=== PATIENT | male | born 1965 | race Caucasian/White ===

== ENCOUNTER 2019-01-18 13:47 | Inpatient (IN) | payer OTHER, BC ==
[2019-01-18] MEDS ORDERED: SODIUM CHLORIDE 0.9% 1000 ML INFUS.BAG IV ONE (14:55)
[2019-01-18] MEDS ORDERED: ONDANSETRON 4 MG/2 ML VIAL IVPUSH ONE (14:55)
[2019-01-18 15:00] VITALS: BMI 25.0
[2019-01-18 15:42] LABS: ALBUMIN 3.9 g/dl (3.4-5.0); BILIRUBIN,TOTAL 0.4 mg/dL (0.2-1); BLOOD UREA NITROGEN 13.5 mg/dL (7-18); CALCIUM 9.2 mg/dL (8.5-10.1); CREATININE 0.9 mg/dL (0.55-1.3); POTASSIUM 4.4 mmol/L (3.5-5.1); TOT PROT 7.2 g/dl (6.4-8.2)
[2019-01-18] MEDS ORDERED: MIDAZOLAM HCL 5 MG/1 ML Single Dose Vial IVPUSH ONE (15:53)
[2019-01-18] MEDS ORDERED: MIDAZOLAM HCL 2 MG/2 ML SINGLE DOSE VIAL ONE ×2 (15:54→17:34)
[2019-01-18] MEDS ORDERED: MIDAZOLAM HCL 2 MG/2 ML SINGLE DOSE VIAL IVPUSH ONE ×3 (16:01→19:34)
--- NOTE | 2019-01-18 16:05 | PDOC ---
Documentation entered by Earlene Hannah SCRIBE, acting as scribe for Edu Gustafson MD. Edu Gustafson MD: This documentation has been prepared by the Brielle hollingsworth Xhesika, SCRIBE, under my direction and personally reviewed by me in its entirety. I confirm that the documentation accurately reflects all work, treatment, procedures, and medical decision making performed by me. History of Present Illness - General Chief Complaint: Seizure Stated Complaint: Seizure Time Seen by Provider: 01/18/19 14:48 History Source: Family Exam Limitations: No Limitations - History of Present Illness Initial Comments: The patient is a 53 year old male with a significant past medical history of previous stroke (2016), type 2 DM, and subsequent seizures who presents to the ED via EMS s/p 2 seizures. As per at bedside, the patient had 1 unwitnessed postictal seizure at 10:30am, the patient stood up by the help of his family, went to the bathroom, came back to his bed, had 1 episode of vomiting and at 1pm he had a 2nd witness (by ) postictal seizure. Family notes his second seizure lasted for 1 minutes and the patient was unresponsive. Family notes the patient has had 3 seizures since July 2018. History is limited due to patients postictal seizure. Allergies: penicillins PCP: Milton Sawyer Past History - Past Medical History Allergies/Adverse Reactions: Allergies Allergy/AdvReac Type Severity Reaction Status Date / Time Penicillins Allergy Verified 01/18/19 14:33 Home Medications: Ambulatory Orders NK [No Known Home Medication] 08/09/15 COPD: No - Suicide/Smoking/Psychosocial Hx Smoking History: Never smoked Have you smoked in the past 12 months: No Number of Cigarettes Smoked Daily: 40 Information on smoking cessation initiated: No 'Breaking Loose' booklet given: 08/09/15 Hx Alcohol Use: No Drug/Substance Use Hx: No Substance Use Type: None Review of Systems - Review of Systems Able to Perform ROS?: No Comments:: 01/18/19 15:10 Limited due to patients postictal seizure. *Physical Exam - Vital Signs Last Vital Signs Temp Pulse Resp BP Pulse Ox 97.4 F L 95 H 18 122/80 94 L 01/18/19 13:47 01/18/19 13:47 01/18/19 13:47 01/18/19 13:47 01/18/19 13:47 - Physical Exam Comments: 01/18/19 16:40 Vitals: Triage Vital signs reviewed General Appearance: Post Ictal well nourished well developed, Head: Atraumatic, Neck: Supple;No Nucal rigidity Chest Wall: Nontender Cardiac: Regular rate and rhythym, no murmurs, no rubs, no gallops, Lungs: Clear to auscultation bilateral, good air movement bilaterally, Abdomen: Soft, non distended, normal bowel sounds, non tender to palpation Extremities: Full range of motion to all extremities, no cyanosis, clubbing, or edema Skin: Warm and dry, no rashes or lesions, no rash, no petechiae Neuro: Strength intact to all extremities, Sensation intact to all extremities, Psych: normal mood, normal affect ED Treatment Course - LABORATORY CBC & Chemistry Diagram: 01/18/19 15:00 Medical Decision Making - Medical Decision Making 01/18/19 16:42 The patient is a 53 year old male with a significant past medical history of previous stroke (2016), type 2 DM, and subsequent seizures who presents to the ED via EMS s/p 2 seizures. As per at bedside, the patient had 1 unwitnessed postictal seizure at 10:30am, the patient stood up by the help of his family, went to the bathroom, came back to his bed, had 1 episode of vomiting and at 1pm he had a 2nd witness (by ) postictal seizure. Family notes his second seizure lasted for 1 minutes and the patient was unresponsive. Family notes the patient has had 3 seizures since July 2018. History is limited due to patients postictal seizure. Patient is status post 2 seizures today presented to the emergency department postictal with 2 episodes of vomiting A head CT was ordered but secondary to the patient's postictal status he was unable to tolerate a head CT. 3 mg IV Versed given for sedation in order to safely obtain patient's head CT Case discussed with patient's neurologist Dr. Mills. We'll load the patient with Keppra 1 g we'll observe the patient in the emergency department for the next few hours if patient returns to his baseline mental status over the next 1- 2 hours patient can be discharged with an increase in his Trileptal to 900 mg twice a day. If the patient remains postictal he will require admission overnight. Dr. Coates to reasses patient and dispo. *DC/Admit/Observation/Transfer Diagnosis at time of Disposition: Seizure - Referrals Referrals: Milton Zapien MD [Primary Care Provider] - - Patient Instructions - Post Discharge Activity
[2019-01-18] MEDS ORDERED: ONDANSETRON 4 MG/2 ML VIAL ONE (16:24)
[2019-01-18] MEDS ORDERED: levETIRAcetam 500 MG/5 ML INJECTION VIAL IVPB ONE ×3 (16:25→21:56)
[2019-01-18 16:45] LABS: BASO % 0.3 % (0-2.0); HEMATOCRIT 43.7 % (35.4-49); HEMOGLOBIN 14.8 GM/dL (11.7-16.9); LYMPH % 4.4 % (8-40); MCH 29.7 pg (25.7-33.7); MCHC 33.9 g/dl (32.0-35.9); MEAN CELL VOLUME 87.6 fl (80-96); MEAN PLT VOLUME 6.8 fl (7.5-11.1); MONO % 2.8 % (3.8-10.2); NEUT % 92.5 % (42.8-82.8); PLATELET COUNT 312 K/MM3 (134-434); RBC 4.98 M/mm3 (4.00-5.60); WHITE BLOOD COUNT 19.4 K/mm3 (4.0-10.0)
--- NOTE | 2019-01-18 18:12 | PDOC ---
*Physical Exam - Vital Signs Last Vital Signs Temp Pulse Resp BP Pulse Ox 97.4 F L 95 H 18 122/80 94 L 01/18/19 13:47 01/18/19 13:47 01/18/19 13:47 01/18/19 13:47 01/18/19 13:47 ED Treatment Course - LABORATORY CBC & Chemistry Diagram: 01/19/19 06:15 01/19/19 06:15 - ADDITIONAL ORDERS Additional order review: Laboratory Results 01/18/19 15:00 Sodium 140 Potassium 4.4 Chloride 108 H Carbon Dioxide 27 Anion Gap 5 L BUN 13.5 Creatinine 0.9 Est GFR (CKD-EPI)AfAm 111.05 Est GFR (CKD-EPI)NonAf 95.81 Random Glucose 92 Calcium 9.2 Total Bilirubin 0.4 AST 11 L ALT 21 Alkaline Phosphatase 81 Total Protein 7.2 Albumin 3.9 01/18/19 16:30 RBC 4.98 MCV 87.6 MCHC 33.9 RDW 14.0 MPV 6.8 L Neutrophils % 92.5 H Lymphocytes % 4.4 L Monocytes % 2.8 L Eosinophils % 0.0 Basophils % 0.3 - Medications Given in the ED: ED Medications Discontinued Medications Generic Name Dose Route Start Last Admin Trade Name Freq PRN Reason Stop Dose Admin Levetiracetam 1,000 mg 01/18/19 16:25 01/18/19 16:44 Keppra Injection - IVPB 01/18/19 16:26 1,000 mg ONCE ONE Administration Midazolam HCl 5 mg 01/18/19 15:53 01/18/19 16:35 Versed - IVPUSH 01/18/19 15:54 Not Given ONCE ONE Midazolam HCl 6 mg 01/18/19 16:01 01/18/19 16:21 Versed - IVPUSH 01/18/19 16:02 6 mg ONCE ONE Administration Midazolam HCl 2 mg 01/18/19 17:33 01/18/19 17:37 Versed - IVPUSH 01/18/19 17:34 2 mg ONCE ONE Administration Ondansetron HCl 4 mg 01/18/19 14:55 01/18/19 16:34 Zofran Injection IVPUSH 01/18/19 14:56 4 mg ONCE ONE Administration Sodium Chloride 1,000 ml 01/18/19 14:55 01/18/19 16:34 Normal Saline - IV 01/18/19 14:56 1,000 ml ONCE ONE Administration Medical Decision Making - Medical Decision Making 01/18/19 18:[address] Gustafson at 1730 Pt with hx seizure d/o presents to ED with seizures Thus far labs, CTH negative for acute pathology Pt required versed 3mg 2/[address] On my evaluation, pt waking up, agitated, had urine incontinence Required 4 staff to restrain pt, was given versed 3mg once more Rectally afebrile Case discussed with his neurologist Dr. Mills, plan to admit pt at this time States pt often has seizures 2/2 stroke, and this is similar to his past seizures also states pt has been this agititated after seizures in the past for up to 24 hours Discussed possible lumbar tap with Dr. Mills given agitation/ams but he does not recommend as these seizures and his post ictal agitation are similar to previous seizures Hospitalist has been microblogged to admit 01/18/19 18:[address] Roxanne Lawson, pt accepted for admission under Dr. Hearn Case discussed in detail with admitting physician including history, physical exam and ancillary studies. Admitting physician has assumed care for the patient, will follow all pending diagnostics and will complete the evaluation and treatment. 01/18/19 19:33 Pt agitated and refusing CXR, swung at XR tech, continuously trying to get out of bed and not redirectable Required another dose of versed and 4 point restraints CXR obtained Pt to be transported up to his bed *DC/Admit/Observation/Transfer Diagnosis at time of Disposition: Seizure - Discharge Dispostion Condition at time of disposition: Improved Decision to Admit order Date/Time: Decision to Admit Order Category Date Time Status Decision to Admit to Hospital Routine Admission 01/18/19 17:57 Active - Referrals - Patient Instructions - Post Discharge Activity
[2019-01-18 18:56] LABS: PLATELET ESTIMATE ADEQUATE
--- NOTE | 2019-01-18 19:41 | HP ---
<Che Dick - Last Filed: 01/19/19 06:06> CHIEF COMPLAINT: Seizures PCP: Milton Sawyer Neurology: Dr. Mills HISTORY OF PRESENT ILLNESS: Patient is a 53 year old male with PMH of stroke 2016, seizures, NIDDMT2, and HLD who was BIBEMS s/p 2 seizures. Pt is postictal and poor historian. at bedside able to assist in history. Pt had 1 unwitnessed postictal seizure this morning at 10:30am. He was able to stand and ambulate after the seizure but had 1 episode of nbnb vomiting. Around 1pm, pt had a 2nd witnessed (by ) postictal seizure that last 1 min and pt was unresponsive. Pt urinated himself but no bowel incontinence, did not bite his tongue, or hit his head. After the seizure, pt was agitated, unable to form full sentences or respond to questions in a legible manner. Pt has had 3 seizures since July 2018 (1x Jul, 1x September , 1x October). He sees Dr. Mills for his seizures and was initially placed on Keppra 750mg BID. Pt was poorly compliant with the Keppra (because of unwanted side effects) and seized once on this medication in October. Several weeks ago, Dr. Mills weaned pt off of Keppra and switched him to Trileptal BID. Per , pt has been compliant with this new medications since. He has had no recent illnesses or sick contacts. At baseline, he is A&Ox3 with moderate residual focal motor deficits on his left side (s/p stroke). ER course was notable for: (1) Given 1g IV Keppra, 8mg IV midazolam total (2) CT head: no acute intracranial pathology (3) Spoke with Dr. Mills: will admit pt for observation given postictal state wo improvement Recent Travel: denies PAST MEDICAL HISTORY: Stroke 2016, post-stroke seizures NIDDMT2 HLD PAST SURGICAL HISTORY: Thumb surgery Social History: Smokin-2 pack/day for many years, recently reduced to 1-2 cigarettes/day Alcohol: denies Drugs: denies Family History: Mother: HTN, DM Father: Lung CA Allergies Penicillins Allergy (Verified 01/18/19 14:33) -- anaphylaxis HOME MEDICATIONS: Home Medications Medication Instructions Recorded NK [No Known Home Medication] 08/09/15 REVIEW OF SYSTEMS CONSTITUTIONAL: Absent: fever, chills, diaphoresis, generalized weakness, malaise, loss of appetite, weight change HEENT: Absent: rhinorrhea, nasal congestion, throat pain, throat swelling, difficulty swallowing, mouth swelling, ear pain, eye pain, visual changes CARDIOVASCULAR: Absent: chest pain, syncope, palpitations, irregular heart rate, lightheadedness , peripheral edema RESPIRATORY: Absent: cough, shortness of breath, dyspnea with exertion, orthopnea, wheezing, stridor, hemoptysis GASTROINTESTINAL: Absent: abdominal pain, abdominal distension, nausea, vomiting, diarrhea, constipation, melena, hematochezia GENITOURINARY: Absent: dysuria, frequency, urgency, hesitancy, hematuria, flank pain, genital pain MUSCULOSKELETAL: Absent: myalgia, arthralgia, joint swelling, back pain, neck pain SKIN: Absent: rash, itching, pallor HEMATOLOGIC/IMMUNOLOGIC: Absent: easy bleeding, easy bruising, lymphadenopathy, frequent infections ENDOCRINE: Absent: unexplained weight gain, unexplained weight loss, heat intolerance, cold intolerance NEUROLOGIC: mental status changes, seizure, bladder incontinence Absent: headache, focal weakness or paresthesias, dizziness, unsteady gait PSYCHIATRIC: Absent: anxiety, depression, suicidal or homicidal ideation, hallucinations. PHYSICAL EXAMINATION Vital Signs - 24 hr 01/18/19 13:47 Temperature 97.4 F L Pulse Rate 95 H Respiratory 18 Rate Blood Pressure 122/80 O2 Sat by Pulse 94 L Oximetry (%) GENERAL: A&O x0, very agitated and unable to sit still. HEAD: Normal with no signs of trauma. EYES: Pupils equal, round and reactive to light, extraocular movements intact, sclera anicteric, conjunctiva clear. No lid lag. EARS, NOSE, THROAT: Ears normal, nares patent, oropharynx clear without exudates. Moist mucous membranes. NECK: Normal range of motion, supple without lymphadenopathy, JVD, or masses. LUNGS: Breath sounds equal, clear to auscultation bilaterally. No wheezes, and no crackles. No accessory muscle use. HEART: Regular rate and rhythm, normal S1 and S2 without murmur, rub or gallop. ABDOMEN: Soft, nontender, not distended, normoactive bowel sounds, no guarding, no rebound, no masses. No hepatomegaly or splenomegaly. MUSCULOSKELETAL: Normal range of motion at all joints. No bony deformities or tenderness. No CVA tenderness. UPPER EXTREMITIES: 2+ pulses, warm, well-perfused. No cyanosis. No clubbing. No peripheral edema. LOWER EXTREMITIES: 2+ pulses, warm, well-perfused. No calf tenderness. No peripheral edema. NEUROLOGICAL: Strength intact 5/5 in all extremities. Gait not observed. Pt is very agitated and not cooperative for full neuro exam. Per pt's , he has decresaed sensation and fine motor movement on the Left. SKIN: Warm, dry, normal turgor, no rashes or lesions noted, normal capillary refill. Laboratory Results - last 24 hr CBC, BMP 01/18/19 16:30 01/18/19 15:00 Hepatic Panel Total Bilirubin 0.4 mg/dL (0.2-1) AST 11 U/L (15-37) L ALT 21 U/L (13-61) Alkaline Phosphatase 81 U/L (45-117) Albumin 3.9 g/dl (3.4-5.0) ASSESSMENT/PLAN: Patient is a 53 year old male with PMH of stroke 2016, seizures, NIDDMT2, and HLD who was BIBEMS s/p 2 seizures. #Postictal seizure Pt given 1gm IV Keppra and 8mg IV midazolam in ED, remains very agitated and A&O x0 Cont with Trileptal 900mg BID F/u CPK, lactic acid Frequent neuro monitoring Neurology consulted (Dr. Mills) on board, will see pt in am Close observation overnight due to prolonged postictal state. Pt's neuro status was not improving since admission, so f/u COTY, B12, TSH, Rheumatoid factor, ESR, CRP, RPR #Hx of stroke 2016 CT head: large encephalomalacia seen in R occipital lobe, posterior aspect of R frontal lobe and in R parietal lobe with exvacuodilatation of R lateral ventricle, posteriorly. Unchanged from prior. No acute intracranial pathology Carotid US (10/18/18): right internal carotid occluded; moderate plaques at left carotid Currently holding home meds: asa 81mg daily and crestor 5mg daily as pt cannot currently tolerate po F/u new MRI brain and carotid US to evaluate for any changes from prior imaging #NIDDMT2 Pt on metformin 500mg BID at home Starting on SSI TIDAC while admitted in hospital Frequent BGM #FEN IV NS @ 42ml/hr Replete lytes as needed NPO for now due to mental state and seizure risk #DVT ppx Heparin SQ TID #Dispo Monitor on med-surg Visit type - Emergency Visit Emergency Visit: Yes ED Registration Date: 01/18/19 Care time: The patient presented to the Emergency Department on the above date and was hospitalized for further evaluation of their emergent condition. - New Patient This patient is new to me today: Yes Date on this admission: 01/19/19 - Critical Care Critical Care patient: No ATTENDING PHYSICIAN STATEMENT I saw and evaluated the patient. I reviewed the resident's note and discussed the case with the resident. I agree with the resident's findings and plan as documented. SUBJECTIVE: OBJECTIVE: ASSESSMENT AND PLAN: <Shukri Hearn - Last Filed: 03/09/19 12:48> Seen and examined; agree with above aside from as supplemented my myself. All vital exam findings and patton historical details personally verified All diagnostics personally reviewed unless noted. Family history confirmed; negative for sudden cardiac . Social history, PMH, PSH, reviewed in depth and are as per chart. ATTENDING PHYSICIAN STATEMENT I saw and evaluated the patient. I reviewed the resident's note and discussed the case with the resident. I agree with the resident's findings and plan as documented. SUBJECTIVE: OBJECTIVE: ASSESSMENT AND PLAN:
[2019-01-18] MEDS ORDERED: SODIUM CHLORIDE 1,000 ML IV SCH (22:00)
--- NOTE | 2019-01-18 23:30 | PN ---
Teaching Attending Note Name of Resident: Che Dick ATTENDING PHYSICIAN STATEMENT I saw and evaluated the patient. I reviewed the resident's note and discussed the case with the resident. I agree with the resident's findings and plan as documented. Seen and examined; please see resident note for further historical information. Briefly, this is a 53 y/o male presenting for r/o CVA. He has multiple risk factors. Verified all patton portions of NIHSS, 10 sys ROS done and negative aside from HPI PMH, PSH, FH, SH reviewed FH asked and determined noncontributory after extensive review. VS, labs, imaging reviewed NAD, AAO, resting in bed Agree with NIHSS exam, neuro exam as documented RRR s1/2 NT ND +BS Pending further diagnostics per orders Admit to telemetry Montior neuro checks, seizure precautions. ASA, Statin Defer further care to neuro regarding diagnostics regarding stroke Agree with resident note discussion; please refer to aforementioned and orders for full information.
[2019-01-18] MEDS ORDERED: HALOPERIDOL LACTATE 5 MG/ML IM ONE ×2 (23:34)
[2019-01-18] MEDS: OXcarbazepine 300 MG/5 ML 250 ML BULK BOTTLE PO SCH (23:36)
[2019-01-18] MEDS: SODIUM CHLORIDE 1,000 ML IV SCH (23:39)
[2019-01-19] MEDS ORDERED: HALOPERIDOL LACTATE 5 MG/ML IM ONE (03:37)
[2019-01-19] MEDS: HEPARIN NA (PORCINE) 5,000 UNITS/ML 1ML VIAL SQ SCH ×3 (05:54→23:04)
[2019-01-19] MEDS: INSULIN SLIDING SCALE (NOVOLOG) 1 VIAL SQ SCH ×3 (06:01→17:13)
[2019-01-19 07:18] LABS: HEMATOCRIT 40.2 % (35.4-49); HEMOGLOBIN 13.8 GM/dL (11.7-16.9); MCH 29.9 pg (25.7-33.7); MCHC 34.4 g/dl (32.0-35.9); MEAN CELL VOLUME 86.8 fl (80-96); PLATELET COUNT 274 K/MM3 (134-434); RBC 4.62 M/mm3 (4.00-5.60); RDW 13.9 % (11.9-15.9); WHITE BLOOD COUNT 13.6 K/mm3 (4.0-10.0)
[2019-01-19 08:09] LABS: ALBUMIN 3.7 g/dl (3.4-5.0); ALK PHOS 54 U/L (45-117); ANION GAP 8 MMOL/L (8-16); BILIRUBIN,TOTAL 0.5 mg/dL (0.2-1); BLOOD UREA NITROGEN 8.1 mg/dL (7-18); CHLORIDE 104 mmol/L (98-107); CO2 24 mmol/L (21-32); CREATININE 0.6 mg/dL (0.55-1.3); GLUCOSE,RANDOM 128 mg/dL (74-106); POTASSIUM 3.7 mmol/L (3.5-5.1); SGOT/AST 32 U/L (15-37); SGPT/ALT 21 U/L (13-61); SODIUM 137 mmol/L (136-145); TOT PROT 6.2 g/dl (6.4-8.2)
[2019-01-19] MEDS ORDERED: PT OWN MED DRAWER 7, Y5N ONE (09:16)
[2019-01-19] MEDS ORDERED: ASPIRIN 81 MG CHEWABLE TABLETS PO SCH (10:00)
[2019-01-19] MEDS: OXcarbazepine 300 MG/5 ML 250 ML BULK BOTTLE PO SCH ×2 (10:26→23:04)
[2019-01-19] MEDS ORDERED: SODIUM CHLORIDE 1,000 ML IV STA ×3 (10:53→18:39)
[2019-01-19 11:10] LABS: INR 1.15 (0.83-1.09); PROTHROMBIN TIME (PATIENT) 13.6 SEC (9.7-13.0)
[2019-01-19 12:06] LABS: ERYTHROCYTE SEDIMENTATION RATE 8 mm/hr (0-20)
--- NOTE | 2019-01-19 12:07 | CON.NEURO ---
Consult - History of Present Illness History of Present Illness: 53 year old male with PMH of stroke 2016, seizures, NIDDMT2, and HLD who was BIBEMS s/p 2 seizures. Pt know to me and seen apx one montn ago in my office, Pt had 1 unwitnessed postictal seizure this morning at 10:30am on 01/18/19 . He was able to stand and ambulate after the seizure but had 1 episode of nbnb vomiting. Around 1pm, pt had a 2nd witnessed (by ) postictal seizure that last 1 min and pt was unresponsive. Pt urinated himself but no bowel incontinence, did not bite his tongue, or hit his head. After the seizure, pt was agitated, unable to form full sentences or respond to questions in a legible manner. Pt has had 3 seizures since July 2018 (1x Jul, 1x September, October). Was keppra in past but this was switched over to TRILEPTAL (600BID) , Bc of S/E- sleepiness. He does recall if he missed a dsoe of RX. This AM , awake and appears back to baseline. - Alcohol/Substance Use Hx Alcohol Use: No - Smoking History Smoking history: Never smoked Have you smoked in the past 12 months: No Aproximately how many cigarettes per day: 40 Home Medications - Allergies Allergies/Adverse Reactions: Allergies Allergy/AdvReac Type Severity Reaction Status Date / Time Penicillins Allergy Verified 01/18/19 14:33 - Home Medications Home Medications: Ambulatory Orders Aspirin [ASA -] 81 mg PO DAILY 01/18/19 Rosuvastatin Calcium [Crestor] 5 mg PO 01/18/19 metFORMIN HCL [Metformin HCl] 500 mg PO BID 01/18/19 Physical Exam-Neuro Vital Signs: Vital Signs Temperature 99.1 F 01/18/19 21:00 Pulse Rate 81 01/18/19 21:00 Respiratory Rate 17 01/18/19 21:00 Blood Pressure 101/54 L 01/18/19 21:00 O2 Sat by Pulse Oximetry (%) 96 01/18/19 21:00 Labs: CBC, BMP 01/19/19 06:15 01/19/19 06:15 INR, PTT INR 1.15 (0.83-1.09) H 01/19/19 10:40 - Neuro Exam Level Of Consciousness: Yes: Alert (Right sided field cut, mild RUE drift, rest nonfocal ) Imaging - Results Cat Scan: Report Reviewed Problem List - Problems (1) Cerebrovascular accident Code(s): I63.9 - CEREBRAL INFARCTION, UNSPECIFIED (2) Seizure Code(s): R56.9 - UNSPECIFIED CONVULSIONS Assessment/Plan 53 year old male with PMH of stroke 2016, seizures, NIDDMT2, and HLD who was BIBEMS s/p 2 seizures. Pt know to me and seen apx one montn ago in my office, Pt had 1 unwitnessed postictal seizure this morning at 10:30am on 01/18/19 . He was able to stand and ambulate after the seizure but had 1 episode of nbnb vomiting. Around 1pm, pt had a 2nd witnessed (by ) postictal seizure that last 1 min and pt was unresponsive. Pt urinated himself but no bowel incontinence, did not bite his tongue, or hit his head. After the seizure, pt was agitated, unable to form full sentences or respond to questions in a legible manner. Pt has had 3 seizures since July 2018 (1x Jul, 1x September, 1x October). Was keppra in past but this was switched over to TRILEPTAL (600BID) , Bc of S/E- sleepiness. He does recall if he missed a dsoe of RX. This AM , awake and appears back to baseline. AP : Breakthrough seizure, ? noncompliance vs natural breakthrough vs infection INC TRILEPTAL 900BID, will monitor NA as outpt elevted WBC - ? reactive , no fever, now improved can DC HOME TODAY and will see him in office DR SULLIVAN
--- NOTE | 2019-01-19 14:01 | DS ---
Physical Exam: SUBJECTIVE: 53 y/o M with PMH seizure d/o, DM2, HLD, and CVA brought to ED, accompanied by , for witnessed seizure by . Pt was given anti-epileptic drugs, fluids, and ativan in ED. Pt was admitted and seen by his neurologist, Dr. Mills. Dose of trileptal was increased to 600 mg BID during this stay. Pt returned to baseline overnight. OBJECTIVE: Vital Signs Temp Pulse Resp BP Pulse Ox 99.1 F 83 18 108/46 L 96 01/19/19 10:00 01/19/19 10:00 01/19/19 10:01/19/19 10:01/19/19 09:00 PHYSICAL EXAM GENERAL: The patient is awake, alert, and fully oriented, in no acute distress. HEAD: Normal with no signs of trauma. EYES: MARCOS, EOMI, w clearconjunctiva ENT: Ears normal, nares patent, oropharynx clear without exudates, moist mucous membranes. NECK: Trachea midline, full range of motion, supple. LUNGS: Breath sounds equal, clear to auscultation bilaterally, no wheezes, no crackles, no accessory muscle use. HEART: Regular rate and rhythm, S1, S2 without murmur, rub or gallop. ABDOMEN: Soft, nontender, nondistended, normoactive bowel sounds, no guarding, no rebound, no hepatosplenomegaly, no masses. EXTREMITIES: 2+ pulses, warm, well-perfused, no edema. NEUROLOGICAL: Cranial nerves II through XII grossly intact. Normal speech, gait not observed. PSYCH: Normal mood, normal affect. 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 Warm, dry, normal turgor , no rashes or lesions noted. LABS Laboratory Results - last 24 hr 01/18/19 01/18/19 01/19/19 15:00 16:30 05:53 WBC 19.4 H Corrected WBC (auto) RBC 4.98 Hgb 14.8 Hct 43.7 MCV 87.6 MCH 29.7 MCHC 33.9 RDW 14.0 Plt Count 312 MPV 6.8 L Absolute Neuts (auto) 17.9 H Total Counted 100 Neutrophils % 92.5 H Neutrophils % (Manual) 94.0 H Lymphocytes % 4.4 L Lymphocytes % (Manual) 3.0 L Monocytes % 2.8 L Monocytes % (Manual) 3 L Eosinophils % 0.0 Basophils % 0.3 Nucleated RBC % 0 Differential Comment Man diff performed Platelet Estimate Adequate Platelet Comment ESR PT with INR INR Sodium 140 Potassium 4.4 Chloride 108 H Carbon Dioxide 27 Anion Gap 5 L BUN 13.5 Creatinine 0.9 Est GFR (CKD-EPI)AfAm 111.05 Est GFR (CKD-EPI)NonAf 95.81 POC Glucometer 131 Random Glucose 92 Lactic Acid Calcium 9.2 Magnesium Total Bilirubin 0.4 AST 11 L ALT 21 Alkaline Phosphatase 81 Creatine Kinase Creatine Kinase Index CK-MB (CK-2) C-Reactive Protein Total Protein 7.2 Albumin 3.9 Vitamin B12 TSH Rheumatoid Factor RPR Titer 01/19/19 01/19/19 01/19/19 06:15 06:15 06:15 WBC Cancelled 13.6 H Corrected WBC (auto) Cancelled RBC Cancelled 4.62 Hgb Cancelled 13.8 Hct Cancelled 40.2 MCV Cancelled 86.8 MCH Cancelled 29.9 MCHC Cancelled 34.4 RDW Cancelled 13.9 Plt Count Cancelled 274 MPV Cancelled 7.0 L Absolute Neuts (auto) Cancelled Total Counted Neutrophils % Cancelled Neutrophils % (Manual) Lymphocytes % Cancelled Lymphocytes % (Manual) Monocytes % Cancelled Monocytes % (Manual) Eosinophils % Cancelled Basophils % Cancelled Nucleated RBC % Cancelled Differential Comment Platelet Estimate Cancelled Platelet Comment Cancelled ESR 8 PT with INR INR Sodium 137 Potassium 3.7 Chloride 104 Carbon Dioxide 24 Anion Gap 8 BUN 8.1 Creatinine 0.6 Est GFR (CKD-EPI)AfAm 131.19 Est GFR (CKD-EPI)NonAf 113.19 POC Glucometer Random Glucose 128 H Lactic Acid Calcium 9.0 Magnesium 2.0 Total Bilirubin 0.5 AST 32 ALT 21 Alkaline Phosphatase 54 Creatine Kinase 993 H Creatine Kinase Index 1.0 CK-MB (CK-2) 10.1 H C-Reactive Protein 1.3 H Total Protein 6.2 L Albumin 3.7 Vitamin B12 898 TSH 2.27 Rheumatoid Factor < 10.0 RPR Titer 01/19/19 01/19/19 01/19/19 09:40 10:40 10:40 WBC Corrected WBC (auto) RBC Hgb Hct MCV MCH MCHC RDW Plt Count MPV Absolute Neuts (auto) Total Counted Neutrophils % Neutrophils % (Manual) Lymphocytes % Lymphocytes % (Manual) Monocytes % Monocytes % (Manual) Eosinophils % Basophils % Nucleated RBC % Differential Comment Platelet Estimate Platelet Comment ESR PT with INR 13.60 H INR 1.15 H Sodium Potassium Chloride Carbon Dioxide Anion Gap BUN Creatinine Est GFR (CKD-EPI)AfAm Est GFR (CKD-EPI)NonAf POC Glucometer Random Glucose Lactic Acid 1.2 Calcium Magnesium Total Bilirubin AST ALT Alkaline Phosphatase Creatine Kinase Creatine Kinase Index CK-MB (CK-2) C-Reactive Protein Total Protein Albumin Vitamin B12 TSH Rheumatoid Factor RPR Titer Nonreactive 01/19/19 11:34 WBC Corrected WBC (auto) RBC Hgb Hct MCV MCH MCHC RDW Plt Count MPV Absolute Neuts (auto) Total Counted Neutrophils % Neutrophils % (Manual) Lymphocytes % Lymphocytes % (Manual) Monocytes % Monocytes % (Manual) Eosinophils % Basophils % Nucleated RBC % Differential Comment Platelet Estimate Platelet Comment ESR PT with INR INR Sodium Potassium Chloride Carbon Dioxide Anion Gap BUN Creatinine Est GFR (CKD-EPI)AfAm Est GFR (CKD-EPI)NonAf POC Glucometer 123 Random Glucose Lactic Acid Calcium Magnesium Total Bilirubin AST ALT Alkaline Phosphatase Creatine Kinase Creatine Kinase Index CK-MB (CK-2) C-Reactive Protein Total Protein Albumin Vitamin B12 TSH Rheumatoid Factor RPR Titer HOSPITAL COURSE: 53 y/o M with PMH seizure d/o, DM2, HLD, and CVA brought to ED for witnessed seizure and admitted for postictal care. Date of Admission:01/18/19 Pt brought to ED, accompanied by , for witnessed seizure by . Pt was given anti-epileptic drugs, fluids, and ativan in ED. Pt was AO x0 2/2 to post- ictal state. Pt was admitted and seen by neurologist, Dr. Mills. Dose of trileptal was increased to 600 mg BID. Pt is DM and was put on ISS. Pt returned to baseline overnight. IMAGING 18 Jan 2019 CXR Single AP view of the chest has been submitted. Since 08/09/2015 is a slightly more prominent mediastinum, clear right lung and what appears to be an early infiltrate in the left hemithorax. The bones and soft tissues are intact. Correlation recommended. CT soft tissue neck No significant interval change. Large area of encephalomalacia again seen in the right occipital lobe, posterior aspect of the right frontal lobe and in the right parietal lobe with exvacuodilatation of the right lateral ventricle, posteriorly. No acute intracranial pathology is identified. Date of Discharge: 01/19/19 Emeka Allen MD Minutes to complete discharge: 40 Discharge Summary Reason For Visit: Seizure Condition: Good - Instructions Diet, Activity, Other Instructions: YOUR VISIT You were admitted to the hospital because you experienced a seizure. While here , you received fluids and anti-seizure medication. You were also seen by a neurologist, whom recommends you continue your recent anti-seizure medication, Trileptal, in an increased dose. MEDICATIONS Please take note of the following changes to your medications: - Trileptal 900mg by mouth twice a day. Continue your other home medications. - Aspirin 81 mg once a day - Metformin 500 mg three times a day - Crestor (rosouvastatin) 5 mg once a day ADDITIONAL CARE Please follow up with your primary care provider, Dr. Zapien, 1 week from today. Please make an appointment with your neurologist (Dr. Mills) in 1-2 weeks. ADDITIONAL INFORMATION Please call 911 or come to the emergency department if you experience shortness of breath, chest pain, headache, unusual bleeding, seizure, or any other alarming symptoms. Referrals: Vlad Mills DO [Staff Physician] - Disposition: HOME - Home Medications Comprehensive Discharge Medication List: Ambulatory Orders Aspirin [ASA -] 81 mg PO DAILY 01/18/19 Rosuvastatin Calcium [Crestor] 5 mg PO DAILY 01/18/19 metFORMIN HCL [Metformin HCl] 500 mg PO TID 01/18/19 Oxcarbazepine [Trileptal] 600 mg PO BID 01/19/19 This patient is new to me today: Yes Date on this admission: 01/19/19 Emergency Visit: No Critical Care patient: No - Discharge Referral Referred to [facility] Med P.C.: No ATTENDING PHYSICIAN STATEMENT I saw and evaluated the patient. I reviewed the resident's note and discussed the case with the resident. I agree with the resident's findings and plan as documented. SUBJECTIVE: OBJECTIVE: ASSESSMENT AND PLAN:
[2019-01-19] MEDS: SODIUM CHLORIDE 1,000 ML IV SCH (15:06)
--- NOTE | 2019-01-19 18:30 | PN ---
Teaching Attending Note Name of Resident: Emeka Allen ATTENDING PHYSICIAN STATEMENT I saw and evaluated the patient. I reviewed the resident's note and discussed the case with the resident. I agree with the resident's findings and plan as documented. SUBJECTIVE: Feels well - no complaints. No headache/visual disturbance. No limb numbness/weakness/tingling. No fevers/chills. OBJECTIVE: Afebrile, hemodynamically Stable. Last Vital Signs Temp Pulse Resp BP Pulse Ox 99.1 F 63 18 123/70 96 01/19/19 17:35 01/19/19 17:35 01/19/19 17:35 01/19/19 17:35 01/19/19 09:00 HEENT - Atraumatic, Normocephalic. Heart - S1, S2, RRR Lungs - clear to auscultation Abdomen - Soft, non-tender. Bowel Sounds normal. Extremities - no edema, no calf tenderness. Neuro - AAO x 3. Tone/Power normal all 4 extremities. Laboratory Results - last 24 hr 01/18/19 01/19/19 01/19/19 16:30 05:53 06:15 WBC Cancelled Corrected WBC (auto) Cancelled RBC Cancelled Hgb Cancelled Hct Cancelled MCV Cancelled MCH Cancelled MCHC Cancelled RDW Cancelled Plt Count Cancelled MPV Cancelled Absolute Neuts (auto) Cancelled Total Counted 100 Neutrophils % Cancelled Neutrophils % (Manual) 94.0 H Lymphocytes % Cancelled Lymphocytes % (Manual) 3.0 L Monocytes % Cancelled Monocytes % (Manual) 3 L Eosinophils % Cancelled Basophils % Cancelled Nucleated RBC % Cancelled Differential Comment Man diff performed Platelet Estimate Adequate Cancelled Platelet Comment Cancelled ESR PT with INR INR Sodium Potassium Chloride Carbon Dioxide Anion Gap BUN Creatinine Est GFR (CKD-EPI)AfAm Est GFR (CKD-EPI)NonAf POC Glucometer 131 Random Glucose Lactic Acid Calcium Magnesium Total Bilirubin AST ALT Alkaline Phosphatase Creatine Kinase Creatine Kinase Index CK-MB (CK-2) C-Reactive Protein Total Protein Albumin Vitamin B12 TSH Rheumatoid Factor RPR Titer 01/19/19 01/19/19 01/19/19 06:15 06:15 09:40 WBC 13.6 H Corrected WBC (auto) RBC 4.62 Hgb 13.8 Hct 40.2 MCV 86.8 MCH 29.9 MCHC 34.4 RDW 13.9 Plt Count 274 MPV 7.0 L Absolute Neuts (auto) Total Counted Neutrophils % Neutrophils % (Manual) Lymphocytes % Lymphocytes % (Manual) Monocytes % Monocytes % (Manual) Eosinophils % Basophils % Nucleated RBC % Differential Comment Platelet Estimate Platelet Comment ESR 8 PT with INR INR Sodium 137 Potassium 3.7 Chloride 104 Carbon Dioxide 24 Anion Gap 8 BUN 8.1 Creatinine 0.6 Est GFR (CKD-EPI)AfAm 131.19 Est GFR (CKD-EPI)NonAf 113.19 POC Glucometer Random Glucose 128 H Lactic Acid 1.2 Calcium 9.0 Magnesium 2.0 Total Bilirubin 0.5 AST 32 ALT 21 Alkaline Phosphatase 54 Creatine Kinase 993 H Creatine Kinase Index 1.0 CK-MB (CK-2) 10.1 H C-Reactive Protein 1.3 H Total Protein 6.2 L Albumin 3.7 Vitamin B12 898 TSH 2.27 Rheumatoid Factor < 10.0 RPR Titer 01/19/19 01/19/19 01/19/19 10:40 10:40 11:34 WBC Corrected WBC (auto) RBC Hgb Hct MCV MCH MCHC RDW Plt Count MPV Absolute Neuts (auto) Total Counted Neutrophils % Neutrophils % (Manual) Lymphocytes % Lymphocytes % (Manual) Monocytes % Monocytes % (Manual) Eosinophils % Basophils % Nucleated RBC % Differential Comment Platelet Estimate Platelet Comment ESR PT with INR 13.60 H INR 1.15 H Sodium Potassium Chloride Carbon Dioxide Anion Gap BUN Creatinine Est GFR (CKD-EPI)AfAm Est GFR (CKD-EPI)NonAf POC Glucometer 123 Random Glucose Lactic Acid Calcium Magnesium Total Bilirubin AST ALT Alkaline Phosphatase Creatine Kinase Creatine Kinase Index CK-MB (CK-2) C-Reactive Protein Total Protein Albumin Vitamin B12 TSH Rheumatoid Factor RPR Titer Nonreactive Current Medications Generic Name Dose Route Start Last Admin Trade Name Freq PRN Reason Stop Dose Admin Heparin Sodium (Porcine) 5,000 unit 01/19/19 06:00 01/19/19 14:04 Heparin - SQ Not Given TID [facility] Sodium Chloride 1,000 mls @ 75 mls/hr 01/18/19 23:32 01/19/19 15:06 Normal Saline - IV 75 mls/hr ASDIR GILBERT Administration Insulin Aspart 1 vial 01/19/19 07:00 01/19/19 17:13 Novolog Vial Sliding Scale - SQ Not Given TIDAC [facility] Protocol Oxcarbazepine 900 mg 01/18/19 22:00 01/19/19 10:26 Trileptal PO 900 mg BID [facility] Administration Home Medications Medication Instructions Recorded Aspirin [ASA -] 81 mg PO DAILY 01/18/19 Rosuvastatin Calcium [Crestor] 5 mg PO DAILY 01/18/19 metFORMIN HCL [Metformin HCl] 500 mg PO TID 01/18/19 Oxcarbazepine [Trileptal -] 900 mg PO BID #180 tablet 01/19/19 ASSESSMENT AND PLAN: 53 year old male with history of CVA 2016, Seizure Disorder, DM 2, HLD, brought in s/p 2 seizures with post-ictal agitation/confusion, requiring Midazolam. 1. Breakthrough Seizure Patient claims compliance with Trileptal Loaded with Keppra. CT Head - Multiple areas of encephalomalacia, no acute findings. Leukocytosis reactive - improving. Prolonged post-ictal state - now AAO x 3. Neurologically intact. Evaluated by Neurology and cleared for discharge on increased Trileptal dose. 2. Acute Rhabdomyolysis Sec to multiple seizures Will hydrate and monitor. Renal function normal. 3. Hx CVA CT head - large encephalomalacia seen in R occipital lobe, posterior aspect of R frontal lobe and in R parietal lobe, No acute intracranial pathology Carotid US (10/18/18): right internal carotid occluded; moderate plaques at left carotid Will resume Aspirin, Crestor. No need for further MRI as per Neuro. 4. DM 2 - Covered with sliding scale. To resume Metformin on discharge. DVT Px - Heparin SQ
[2019-01-19] MEDS ORDERED: SODIUM CHLORIDE 1,000 ML IV SCH (18:38)
[2019-01-19] MEDS ORDERED: ROSUVASTATIN CA 5 MG TABLET (FP) PO SCH (22:00)
[2019-01-20] MEDS: HEPARIN NA (PORCINE) 5,000 UNITS/ML 1ML VIAL SQ SCH ×3 (06:13→23:21)
[2019-01-20] MEDS: INSULIN SLIDING SCALE (NOVOLOG) 1 VIAL SQ SCH ×3 (06:14→16:42)
[2019-01-20] MEDS ORDERED: SODIUM CHLORIDE 1,000 ML IV SCH (06:30)
[2019-01-20] MEDS: OXcarbazepine 300 MG/5 ML 250 ML BULK BOTTLE PO SCH ×2 (09:31→23:28)
[2019-01-20 10:37] LABS: BLOOD UREA NITROGEN 7.8 mg/dL (7-18); CALCIUM 9.2 mg/dL (8.5-10.1); CREATININE 0.7 mg/dL (0.55-1.3)
[2019-01-20] MEDS ORDERED: SODIUM CHLORIDE 1,000 ML IV STA ×3 (11:18→11:20)
--- NOTE | 2019-01-20 15:19 | PN ---
Teaching Attending Note Name of Resident: Emeka Allen ATTENDING PHYSICIAN STATEMENT I saw and evaluated the patient. I reviewed the resident's note and discussed the case with the resident. I agree with the resident's findings and plan as documented. SUBJECTIVE: Feels well - no complaints. No headache/visual disturbance. No limb numbness/weakness/tingling. No fevers/chills. OBJECTIVE: Afebrile, hemodynamically Stable. Last Vital Signs Temp Pulse Resp BP Pulse Ox 98.4 F 61 19 152/88 100 01/20/19 10:00 01/20/19 10:00 01/20/19 10:00 01/20/19 10:00 01/20/19 09:00 Heart - S1, S2, RRR Lungs - clear to auscultation Abdomen - Soft, non-tender. Bowel Sounds normal. Extremities - no edema, no calf tenderness. Neuro - AAO x 3. Tone/Power normal all 4 extremities. ONEYDA. Laboratory Results - last 24 hr 01/19/19 01/20/19 01/20/19 16:40 06:13 09:30 Sodium 139 Potassium 4.0 Chloride 104 Carbon Dioxide 29 Anion Gap 6 L BUN 7.8 Creatinine 0.7 Est GFR (CKD-EPI)AfAm 123.13 Est GFR (CKD-EPI)NonAf 106.24 POC Glucometer 139 Random Glucose 156 H Calcium 9.2 Creatine Kinase 1518 H 1882 H Creatine Kinase Index 0.6 0.4 CK-MB (CK-2) 9.4 H 8.4 H 01/20/19 11:37 Sodium Potassium Chloride Carbon Dioxide Anion Gap BUN Creatinine Est GFR (CKD-EPI)AfAm Est GFR (CKD-EPI)NonAf POC Glucometer 162 Random Glucose Calcium Creatine Kinase Creatine Kinase Index CK-MB (CK-2) Current Medications Generic Name Dose Route Start Last Admin Trade Name Freq PRN Reason Stop Dose Admin Heparin Sodium (Porcine) 5,000 unit 01/19/19 06:00 01/20/19 13:30 Heparin - SQ 5,000 unit TID [facility]IL[facility] Administration Insulin Aspart 1 vial 01/19/19 07:00 01/20/19 12:03 Novolog Vial Sliding Scale - SQ Not Given TIDAC [facility] Protocol Oxcarbazepine 900 mg 01/18/19 22:00 01/20/19 09:31 Trileptal PO 900 mg BID [facility] Administration Home Medications Medication Instructions Recorded Aspirin [ASA -] 81 mg PO DAILY 01/18/19 Rosuvastatin Calcium [Crestor] 5 mg PO DAILY 01/18/19 metFORMIN HCL [Metformin HCl] 500 mg PO TID 01/18/19 Oxcarbazepine [Trileptal -] 900 mg PO BID #180 tablet 01/19/19 ASSESSMENT AND PLAN: 53 year old male with history of CVA 2016, Seizure Disorder, DM 2, HLD, brought in s/p 2 seizures with post-ictal agitation/confusion, requiring Midazolam. 1. Breakthrough Seizure Patient claims compliance with Trileptal - dose increased by Neuro CT Head - Multiple areas of encephalomalacia, no acute findings. Leukocytosis reactive - improving. Prolonged post-ictal state - now AAO x 3. Neurologically intact. Evaluated by Neurology and cleared for discharge on increased Trileptal dose. 2. Acute Rhabdomyolysis Sec to multiple seizures CK worsening. Will intensify hydration and monitor CPK. Renal function normal. 3. Hx CVA CT head - large encephalomalacia seen in R occipital lobe, posterior aspect of R frontal lobe and in R parietal lobe, No acute intracranial pathology Carotid US (10/18/18): right internal carotid occluded; moderate plaques at left carotid Will resume Aspirin, Crestor. No need for further MRI as per Neuro. 4. DM 2 - Covered with sliding scale. To resume Metformin on discharge. DVT Px - Heparin SQ
--- NOTE | 2019-01-20 16:51 | PN ---
Physical Exam: SUBJECTIVE: Patient's CPK trended up and was held to receive fluids. Please disregard previous d/c note. 53 y/o M w PMH seizure d/o, DM2, HLD, and CVA seen at bedside today s/p witnessed seizure. Pt was given anti-epileptic drugs, fluids, and ativan in ED. Pt states he is doing well on increased dose of trileptal. Pt does c/o abdominal pain. Pain is soreness, diffuse, characterized as discomfort, and improving with rest and time. He denies PERAZA, vision change, CP, and SOB. Pt denies NVFD. OBJECTIVE: Vital Signs Temp Pulse Resp BP Pulse Ox 98.8 F 69 20 170/100 100 01/20/19 18:10 01/20/19 18:10 01/20/19 18:10 01/20/19 18:10 01/20/19 09:00 GENERAL: The patient is awake, alert, and fully oriented, in no acute distress. HEAD: Normal with no signs of trauma. EYES: MARCOS, EOMI, w clearconjunctiva ENT: Ears normal, nares patent, oropharynx clear without exudates, moist mucous membranes. NECK: Trachea midline, full range of motion, supple. LUNGS: Breath sounds equal, clear to auscultation bilaterally, no wheezes, no crackles, no accessory muscle use. HEART: Regular rate and rhythm, S1, S2 without murmur, rub or gallop. ABDOMEN: Soft, nontender, nondistended, normoactive bowel sounds, no guarding, no rebound, no hepatosplenomegaly, no masses. EXTREMITIES: 2+ pulses, warm, well-perfused, no edema. NEUROLOGICAL: Cranial nerves III through XII grossly intact. Normal speech, normal gait today PSYCH: Normal mood, normal affect. 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 Warm, dry, normal turgor , no rashes or lesions noted. Laboratory Results - last 24 hr 01/19/19 01/20/19 01/20/19 16:40 06:13 09:30 Sodium 139 Potassium 4.0 Chloride 104 Carbon Dioxide 29 Anion Gap 6 L BUN 7.8 Creatinine 0.7 Est GFR (CKD-EPI)AfAm 123.13 Est GFR (CKD-EPI)NonAf 106.24 POC Glucometer 139 Random Glucose 156 H Calcium 9.2 Creatine Kinase 1518 H 1882 H Creatine Kinase Index 0.6 0.4 CK-MB (CK-2) 9.4 H 8.4 H 01/20/19 01/20/19 01/20/19 11:37 15:00 16:23 Sodium Potassium Chloride Carbon Dioxide Anion Gap BUN Creatinine Est GFR (CKD-EPI)AfAm Est GFR (CKD-EPI)NonAf POC Glucometer 162 96 Random Glucose Calcium Creatine Kinase 2181 H Creatine Kinase Index CK-MB (CK-2) Active Medications Aspirin (Ecotrin -) 81 mg PO DAILY [facility] Heparin Sodium (Porcine) (Heparin -) 5,000 unit SQ TID [facility] Last Admin: 01/20/19 13:30 Dose: 5,000 unit Sodium Chloride (Normal Saline -) 1,000 mls @ 150 mls/hr IV ASDIR [facility] Last Admin: 01/20/19 17:01 Dose: 150 mls/hr Insulin Aspart (Novolog Vial Sliding Scale -) 1 vial SQ TIDAC [facility]; Protocol Last Admin: 01/20/19 16:42 Dose: Not Given Nicotine (Nicoderm Patch -) 14 mg TD DAILY [facility] Oxcarbazepine (Trileptal) 900 mg PO BID [facility] Last Admin: 01/20/19 09:31 Dose: 900 mg Rosuvastatin Calcium (Crestor -) 5 mg PO HS [facility] ASSESSMENT/PLAN: 53 y/o M w PMH seizure d/o, DM2, HLD, and CVA, admitted for care of seizure w post-inctal state and rhabdomyolysis. Pt being treated with increased anti- seizure and fluids. # Breakthrough seizure - Pt compliant w trileptal - Given Keppra. - CT Head: Multiple areas of encephalomalacia, no acute findings. - Leukocytosis reactive - improving. - Prolonged post-ictal state with agitation now resolved - AAO x 3. Neurologically intact. - Neurology on board # Acute rhabdomyolysis - Most likely d/t seizure - Only presenting symptoms is abdominal soreness - Hydrate and monitor. - Renal function within normal limits # H/o CVA - CT head - large encephalomalacia seen in R occipital lobe, posterior aspect of R frontal lobe and in R parietal lobe, No acute intracranial pathology - Carotid US (10/18/18) shows right internal carotid occluded; moderate plaques at left carotid - Resume aspirin and Crestor. - No need for further MRI per Neuro. # DM - ISS - Metformin on DC # F/E/N - NS - Monitor electrolytes and CK - Diabetic diet # DVT prophylaxis - Heparin Emeka Allen MD Visit type - Emergency Visit Emergency Visit: No - New Patient This patient is new to me today: No - Critical Care Critical Care patient: No - Discharge Referral Referred to [facility] Med P.C.: No ATTENDING PHYSICIAN STATEMENT I saw and evaluated the patient. I reviewed the resident's note and discussed the case with the resident. I agree with the resident's findings and plan as documented. SUBJECTIVE: OBJECTIVE: ASSESSMENT AND PLAN:
[2019-01-20] MEDS: SODIUM CHLORIDE 1,000 ML IV SCH ×2 (17:01→23:52)
[2019-01-20] MEDS ORDERED: amLODIPine BESYLATE 5 MG TABLET (FP) PO STA (18:14)
[2019-01-20 21:15] LABS: EPI CELLS 2.6 /HPF (0-5/HPF); HYALINE CASTS 1 /lpf (0-8); URINE APPEARANCE CLEAR; URINE BACTERIA 3.2 /hpf (NEGATIVE); URINE BILIRUBIN NEGATIVE (NEGATIVE); URINE COLOR YELLOW; URINE GLUCOSE (UA) NEGATIVE (NEGATIVE); URINE KETONE NEGATIVE (NEGATIVE); URINE LEUK ESTERASE NEGATIVE (NEGATIVE); URINE NITRITE NEGATIVE (NEGATIVE); URINE PROTEIN 1+ (NEGATIVE); URINE RBC 1 /hpf (0-4); URINE UROBILINOGEN 0.2 mg/dL (0.2-1.0); URINE WBC 1 /hpf (0-5)
[2019-01-20 21:34] LABS: COCAINE, UR NEGATIVE ng/ml (CUTOFF=300); METHADONE, UR NEGATIVE ng/ml (CUTOFF=300); OPIATES, URI NEGATIVE ng/ml (CUTOFF=300); PHENCYCLIDINE,URINE NEGATIVE ng/ml (CUTOFF=25); URINE AMPHETAMINES NEGATIVE ng/ml (CUTOFF=500); URINE BARBITURATES NEGATIVE ng/ml (CUTOFF=200)
[2019-01-20 21:42] LABS: URINE BENZODIAZEPINES POSITIVE ng/ml (CUTOFF=200)
[2019-01-20] MEDS: ASPIRIN COATED 81 MG TABLET.EC PO SCH (23:21)
[2019-01-20] MEDS: ROSUVASTATIN CA 5 MG TABLET (FP) PO SCH (23:21)
[2019-01-20] MEDS ORDERED: PT OWN MED DRAWER 7, Y5N ONE (23:26)
[2019-01-21] MEDS ORDERED: amLODIPine BESYLATE 5 MG TABLET (FP) PO ONE (00:19)
[2019-01-21] MEDS: NICOTINE 14 MG/24 HOURS TOPICAL PATCH TD SCH ×2 (01:13→09:04)
[2019-01-21] MEDS: HEPARIN NA (PORCINE) 5,000 UNITS/ML 1ML VIAL SQ SCH ×3 (06:08→22:24)
[2019-01-21] MEDS: INSULIN SLIDING SCALE (NOVOLOG) 1 VIAL SQ SCH ×3 (06:10→16:26)
[2019-01-21] MEDS: SODIUM CHLORIDE 1,000 ML IV SCH ×3 (06:11→18:06)
[2019-01-21 08:22] LABS: BILIRUBIN,TOTAL 1.1 mg/dL (0.2-1); BLOOD UREA NITROGEN 4.6 mg/dL (7-18); CALCIUM 9.1 mg/dL (8.5-10.1); CREATININE 0.6 mg/dL (0.55-1.3); POTASSIUM 3.4 mmol/L (3.5-5.1); TOT PROT 6.7 g/dl (6.4-8.2)
[2019-01-21] MEDS ORDERED: POTASSIUM CHLORIDE TABS 20 MEQ TABLET.ER (FP) PO ONE (08:26)
[2019-01-21] MEDS ORDERED: PT OWN MED DRAWER 7, Y5N ONE ×2 (08:48→22:09)
[2019-01-21] MEDS: ASPIRIN COATED 81 MG TABLET.EC PO SCH (09:03)
[2019-01-21] MEDS: OXcarbazepine 300 MG/5 ML 250 ML BULK BOTTLE PO SCH ×2 (09:03→22:25)
[2019-01-21] MEDS ORDERED: NICOTINE 14 MG/24 HOURS TOPICAL PATCH TD SCH (10:00)
[2019-01-21] MEDS ORDERED: SODIUM CHLORIDE 1,000 ML IV STA ×3 (10:32→10:35)
--- NOTE | 2019-01-21 13:27 | PN ---
Physical Exam: SUBJECTIVE: 53 y/o M w PMH seizure d/o, DM2, HLD, and CVA seen at bedside today s/p witnessed seizure, CELIO 4. Pt has no complaints today. Pt states he is doing well on increased dose of trileptal. He reports his previous abdominal pain is now discomfort or not present. He denies dark urine, back pain, PERAZA, vision change, CP, and SOB. Pt denies NVFD. OBJECTIVE: Vital Signs Temp Pulse Resp BP Pulse Ox 97.4 F L 69 20 149/97 97 01/21/19 10:00 01/21/19 10:00 01/21/19 10:00 01/21/19 10:01/21/19 09:00 GENERAL: The patient is awake, alert, and fully oriented, in no acute distress. HEAD: Normal with no signs of trauma. EYES: MARCOS, EOMI, w clearconjunctiva ENT: Ears normal, nares patent, oropharynx clear without exudates, moist mucous membranes. NECK: POS LEFT submandibular swelling consistent w pt reported h/o salivary gland stone. Trachea midline, full range of motion, supple. LUNGS: Breath sounds equal, clear to auscultation bilaterally, no wheezes, no crackles, no accessory muscle use. HEART: Regular rate and rhythm, S1, S2 without murmur, rub or gallop. ABDOMEN: Soft, nontender, nondistended, normoactive bowel sounds, no guarding, no rebound, no hepatosplenomegaly, no masses. EXTREMITIES: 2+ pulses, warm, well-perfused, no edema. NEUROLOGICAL: Cranial nerves III through XII grossly intact. Normal speech, normal gait today PSYCH: Normal mood, normal affect. 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 Warm, dry, normal turgor , no rashes or lesions noted. Laboratory Results - last 24 hr 01/19/19 01/20/19 01/20/19 10:40 12:30 12:30 Sodium Potassium Chloride Carbon Dioxide Anion Gap BUN Creatinine Est GFR (CKD-EPI)AfAm Est GFR (CKD-EPI)NonAf POC Glucometer Random Glucose Calcium Total Bilirubin AST ALT Alkaline Phosphatase Creatine Kinase Creatine Kinase Index CK-MB (CK-2) Total Protein Albumin Urine Color Yellow Urine Appearance Clear Urine pH 6.0 Ur Specific [place] 1.015 Urine Protein 1+ H Urine Glucose (UA) Negative Urine Ketones Negative Urine Blood Negative Urine Nitrite Negative Urine Bilirubin Negative Urine Urobilinogen 0.2 Ur Leukocyte Esterase Negative Urine WBC (Auto) 1 Urine RBC (Auto) 1 Urine Casts (Auto) 1 U Epithel Cells (Auto) 2.6 Urine Bacteria (Auto) 3.2 Opiates Screen Negative Methadone Screen Negative Barbiturate Screen Negative Phencyclidine Screen Negative Ur Amphetamines Screen Negative MDMA (Ecstasy) Screen Negative Benzodiazepines Screen Positive A* Cocaine Screen Negative U Marijuana (THC) Screen Positive A* COTY Screen Negative 01/20/19 01/20/19 01/21/19 15:00 16:23 06:07 Sodium Potassium Chloride Carbon Dioxide Anion Gap BUN Creatinine Est GFR (CKD-EPI)AfAm Est GFR (CKD-EPI)NonAf POC Glucometer 96 116 Random Glucose Calcium Total Bilirubin AST ALT Alkaline Phosphatase Creatine Kinase 2181 H Creatine Kinase Index 0.3 CK-MB (CK-2) 8.0 H Total Protein Albumin Urine Color Urine Appearance Urine pH Ur Specific [place] Urine Protein Urine Glucose (UA) Urine Ketones Urine Blood Urine Nitrite Urine Bilirubin Urine Urobilinogen Ur Leukocyte Esterase Urine WBC (Auto) Urine RBC (Auto) Urine Casts (Auto) U Epithel Cells (Auto) Urine Bacteria (Auto) Opiates Screen Methadone Screen Barbiturate Screen Phencyclidine Screen Ur Amphetamines Screen MDMA (Ecstasy) Screen Benzodiazepines Screen Cocaine Screen U Marijuana (THC) Screen COTY Screen 01/21/19 01/21/19 06:31 11:02 Sodium 142 Potassium 3.4 L Chloride 106 Carbon Dioxide 28 Anion Gap 8 BUN 4.6 L Creatinine 0.6 Est GFR (CKD-EPI)AfAm 131.19 Est GFR (CKD-EPI)NonAf 113.19 POC Glucometer 137 Random Glucose 116 H Calcium 9.1 Total Bilirubin 1.1 H AST 71 H ALT 36 Alkaline Phosphatase 55 Creatine Kinase 2796 H Creatine Kinase Index 0.2 CK-MB (CK-2) 6.2 H Total Protein 6.7 Albumin 4.0 Urine Color Urine Appearance Urine pH Ur Specific [place] Urine Protein Urine Glucose (UA) Urine Ketones Urine Blood Urine Nitrite Urine Bilirubin Urine Urobilinogen Ur Leukocyte Esterase Urine WBC (Auto) Urine RBC (Auto) Urine Casts (Auto) U Epithel Cells (Auto) Urine Bacteria (Auto) Opiates Screen Methadone Screen Barbiturate Screen Phencyclidine Screen Ur Amphetamines Screen MDMA (Ecstasy) Screen Benzodiazepines Screen Cocaine Screen U Marijuana (THC) Screen COTY Screen Active Medications Aspirin (Ecotrin -) 81 mg PO DAILY COUNTS INCLUDE 234 BEDS AT THE [facility] Last Admin: 01/21/19 09:03 Dose: 81 mg Heparin Sodium (Porcine) (Heparin -) 5,000 unit SQ TID COUNTS INCLUDE 234 BEDS AT THE [facility] Last Admin: 01/21/19 13:08 Dose: 5,000 unit Sodium Chloride (Normal Saline -) 1,000 mls @ 150 mls/hr IV ASDIR COUNTS INCLUDE 234 BEDS AT THE [facility] Last Admin: 01/21/19 06:11 Dose: 150 mls/hr Insulin Aspart (Novolog Vial Sliding Scale -) 1 vial SQ TIDAC COUNTS INCLUDE 234 BEDS AT THE [facility]; Protocol Last Admin: 01/21/19 11:04 Dose: Not Given Nicotine (Nicoderm Patch -) 14 mg TD DAILY COUNTS INCLUDE 234 BEDS AT THE [facility] Last Admin: 01/21/19 09:04 Dose: Not Given Oxcarbazepine (Trileptal) 900 mg PO BID COUNTS INCLUDE 234 BEDS AT THE [facility] Last Admin: 01/21/19 09:03 Dose: 900 mg Rosuvastatin Calcium (Crestor -) 5 mg PO HS COUNTS INCLUDE 234 BEDS AT THE [facility] Last Admin: 01/20/19 23:21 Dose: 5 mg ASSESSMENT/PLAN: 53 y/o M w PMH seizure d/o, DM2, HLD, and CVA, admitted for care of seizure w post-inctal state and rhabdomyolysis. Pt being treated with increased anti- seizure and fluids. # Breakthrough seizure - Pt compliant w trileptal - Given Keppra. - CT Head: Multiple areas of encephalomalacia, no acute findings - Leukocytosis reactive - improving. - Prolonged post-ictal state with agitation now resolved - AAO x 3. Neurologically intact. - Neurology on board (Dr. Mills) # Acute rhabdomyolysis - Most likely d/t seizure - Abdominal soreness subsided today - Most recent CK this AM: 2,796 - Hydrate and monitor. - Renal function within normal limits - Fluid boluses result in hypertensive BP measure, which respond to Norvasc 5mg # H/o CVA - CT head - large encephalomalacia seen in R occipital lobe, posterior aspect of R frontal lobe and in R parietal lobe, No acute intracranial pathology - Carotid US (10/18/18) shows right internal carotid occluded; moderate plaques at left carotid - Resume aspirin and Crestor. - No need for further MRI per Neuro. # DM - ISS - Metformin on DC # F/E/N - NS - Monitor electrolytes and CK - Diabetic diet # DVT prophylaxis - Heparin Emeka Allen MD Visit type - Emergency Visit Emergency Visit: No - New Patient This patient is new to me today: No - Critical Care Critical Care patient: No - Discharge Referral Referred to [facility] No ATTENDING PHYSICIAN STATEMENT I saw and evaluated the patient. I reviewed the resident's note and discussed the case with the resident. I agree with the resident's findings and plan as documented. SUBJECTIVE: OBJECTIVE: ASSESSMENT AND PLAN:
[2019-01-21] MEDS ORDERED: amLODIPine BESYLATE 5 MG TABLET (FP) PO STA ×2 (16:33→17:55)
--- NOTE | 2019-01-21 17:55 | PN ---
Teaching Attending Note Name of Resident: Emeka Allen ATTENDING PHYSICIAN STATEMENT I saw and evaluated the patient. I reviewed the resident's note and discussed the case with the resident. I agree with the resident's findings and plan as documented. SUBJECTIVE: Feels well - no complaints. No headache/visual disturbance. No limb numbness/weakness/tingling. No fevers/chills. No further seizure activity. OBJECTIVE: Afebrile, hemodynamically Stable. Last Vital Signs Temp Pulse Resp BP Pulse Ox 98.2 F 72 18 171/99 H 97 01/21/19 16:45 01/21/19 16:45 01/21/19 16:45 01/21/19 16:45 01/21/19 09:00 Heart - S1, S2, RRR Lungs - clear to auscultation Abdomen - Soft, non-tender. Bowel Sounds normal. Extremities - no edema, no calf tenderness. Neuro - AAO x 3. Tone/Power normal all 4 extremities. ONEYDA. Laboratory Results - last 24 hr 01/19/19 01/20/19 01/20/19 10:40 12:30 12:30 Sodium Potassium Chloride Carbon Dioxide Anion Gap BUN Creatinine Est GFR (CKD-EPI)AfAm Est GFR (CKD-EPI)NonAf POC Glucometer Random Glucose Calcium Total Bilirubin AST ALT Alkaline Phosphatase Creatine Kinase Creatine Kinase Index CK-MB (CK-2) Total Protein Albumin Urine Color Yellow Urine Appearance Clear Urine pH 6.0 Ur Specific [place] 1.015 Urine Protein 1+ H Urine Glucose (UA) Negative Urine Ketones Negative Urine Blood Negative Urine Nitrite Negative Urine Bilirubin Negative Urine Urobilinogen 0.2 Ur Leukocyte Esterase Negative Urine WBC (Auto) 1 Urine RBC (Auto) 1 Urine Casts (Auto) 1 U Epithel Cells (Auto) 2.6 Urine Bacteria (Auto) 3.2 Opiates Screen Negative Methadone Screen Negative Barbiturate Screen Negative Phencyclidine Screen Negative Ur Amphetamines Screen Negative MDMA (Ecstasy) Screen Negative Benzodiazepines Screen Positive A* Cocaine Screen Negative U Marijuana (THC) Screen Positive A* COTY Screen Negative 01/21/19 01/21/19 01/21/19 06:07 06:31 11:02 Sodium 142 Potassium 3.4 L Chloride 106 Carbon Dioxide 28 Anion Gap 8 BUN 4.6 L Creatinine 0.6 Est GFR (CKD-EPI)AfAm 131.19 Est GFR (CKD-EPI)NonAf 113.19 POC Glucometer 116 137 Random Glucose 116 H Calcium 9.1 Total Bilirubin 1.1 H AST 71 H ALT 36 Alkaline Phosphatase 55 Creatine Kinase 2796 H Creatine Kinase Index 0.2 CK-MB (CK-2) 6.2 H Total Protein 6.7 Albumin 4.0 Urine Color Urine Appearance Urine pH Ur Specific [place] Urine Protein Urine Glucose (UA) Urine Ketones Urine Blood Urine Nitrite Urine Bilirubin Urine Urobilinogen Ur Leukocyte Esterase Urine WBC (Auto) Urine RBC (Auto) Urine Casts (Auto) U Epithel Cells (Auto) Urine Bacteria (Auto) Opiates Screen Methadone Screen Barbiturate Screen Phencyclidine Screen Ur Amphetamines Screen MDMA (Ecstasy) Screen Benzodiazepines Screen Cocaine Screen U Marijuana (THC) Screen COTY Screen 01/21/19 16:25 Sodium Potassium Chloride Carbon Dioxide Anion Gap BUN Creatinine Est GFR (CKD-EPI)AfAm Est GFR (CKD-EPI)NonAf POC Glucometer 112 Random Glucose Calcium Total Bilirubin AST ALT Alkaline Phosphatase Creatine Kinase Creatine Kinase Index CK-MB (CK-2) Total Protein Albumin Urine Color Urine Appearance Urine pH Ur Specific [place] Urine Protein Urine Glucose (UA) Urine Ketones Urine Blood Urine Nitrite Urine Bilirubin Urine Urobilinogen Ur Leukocyte Esterase Urine WBC (Auto) Urine RBC (Auto) Urine Casts (Auto) U Epithel Cells (Auto) Urine Bacteria (Auto) Opiates Screen Methadone Screen Barbiturate Screen Phencyclidine Screen Ur Amphetamines Screen MDMA (Ecstasy) Screen Benzodiazepines Screen Cocaine Screen U Marijuana (THC) Screen COTY Screen Current Medications Generic Name Dose Route Start Last Admin Trade Name Freq PRN Reason Stop Dose Admin Aspirin 81 mg 01/20/19 20:00 01/21/19 09:03 Ecotrin - PO 81 mg DAILY GILBERT Administration Heparin Sodium (Porcine) 5,000 unit 01/19/19 06:00 01/21/19 13:08 Heparin - SQ 5,000 unit TID [facility] Administration Sodium Chloride 1,000 mls @ 150 mls/hr 01/20/19 17:00 01/21/19 14:20 Normal Saline - IV 150 mls/hr ASDIR GILBERT Administration Insulin Aspart 1 vial 01/19/19 07:00 01/21/19 16:26 Novolog Vial Sliding Scale - SQ Not Given TIDAC [facility] Protocol Nicotine 14 mg 01/20/19 23:40 01/21/19 09:04 Nicoderm Patch - TD Not Given DAILY GILBERT Oxcarbazepine 900 mg 01/18/19 22:00 01/21/19 09:03 Trileptal PO 900 mg BID GILBERT Administration Rosuvastatin Calcium 5 mg 01/20/19 22:00 01/20/19 23:21 Crestor - PO 5 mg HS GILBERT Administration Home Medications Medication Instructions Recorded Aspirin [ASA -] 81 mg PO DAILY 01/18/19 Rosuvastatin Calcium [Crestor] 5 mg PO DAILY 01/18/19 metFORMIN HCL [Metformin HCl] 500 mg PO TID 01/18/19 Oxcarbazepine [Trileptal -] 900 mg PO BID #180 tablet 01/19/19 ASSESSMENT AND PLAN: 53 year old male with history of CVA 2016, Seizure Disorder, DM 2, HLD, brought in s/p 2 seizures with post-ictal agitation/confusion, requiring Midazolam. 1. Breakthrough Seizure Patient claims compliance with Trileptal - dose increased by Neuro CT Head - Multiple areas of encephalomalacia, no acute findings. Leukocytosis reactive - improving. Prolonged post-ictal state - now resolved for > 48 hours. AAO x 3. Neurologically intact. Evaluated by Neurology and cleared for discharge on increased Trileptal dose. 2. Acute Rhabdomyolysis Sec to multiple seizures Prolonged hospitalization due to worsening CPK (2796 today) Continue hydration and monitor CPK. Renal function normal. Hypertensive sec to intensive IV hydration - will give Norvasc 5mg. 3. Hx CVA CT head - large encephalomalacia seen in R occipital lobe, posterior aspect of R frontal lobe and in R parietal lobe, No acute intracranial pathology Carotid US (10/18/18): right internal carotid occluded; moderate plaques at left carotid Will resume Aspirin, Crestor. No need for further MRI as per Neuro. 4. DM 2 - Covered with sliding scale. To resume Metformin on discharge. DVT Px - Heparin SQ
[2019-01-21] MEDS: ROSUVASTATIN CA 5 MG TABLET (FP) PO SCH (22:24)
[2019-01-22] MEDS: HEPARIN NA (PORCINE) 5,000 UNITS/ML 1ML VIAL SQ SCH ×2 (06:10→16:10)
[2019-01-22] MEDS: INSULIN SLIDING SCALE (NOVOLOG) 1 VIAL SQ SCH ×3 (06:10→16:14)
[2019-01-22] MEDS: ASPIRIN COATED 81 MG TABLET.EC PO SCH (09:24)
[2019-01-22] MEDS: NICOTINE 14 MG/24 HOURS TOPICAL PATCH TD SCH (09:24)
[2019-01-22] MEDS: OXcarbazepine 300 MG/5 ML 250 ML BULK BOTTLE PO SCH (09:25)
[2019-01-22] MEDS: SODIUM CHLORIDE 1,000 ML IV SCH (10:18)
[2019-01-22 11:52] VITALS: TEMP 98.2
--- NOTE | 2019-01-22 15:29 | PN ---
Teaching Attending Note Name of Resident: Uma Serrano ATTENDING PHYSICIAN STATEMENT I saw and evaluated the patient. I reviewed the resident's note and discussed the case with the resident. I agree with the resident's findings and plan as documented. SUBJECTIVE: Feels well - no complaints. No headache/visual disturbance. No limb numbness/weakness/tingling. No fevers/chills. No further seizure activity. OBJECTIVE: Afebrile, hemodynamically Stable. Last Vital Signs Temp Pulse Resp BP Pulse Ox 98.2 F 76 18 141/86 96 01/22/19 10:00 01/22/19 10:00 01/22/19 10:00 01/22/19 10:00 01/22/19 09:00 Heart - S1, S2, RRR Lungs - clear to auscultation Abdomen - Soft, non-tender. Bowel Sounds normal. Extremities - no edema, no calf tenderness. Neuro - AAO x 3. Tone/Power normal all 4 extremities. ONEYDA. Laboratory Results - last 24 hr 01/21/19 01/21/19 01/22/19 15:45 16:25 06:08 POC Glucometer 112 119 Creatine Kinase 3036 H Creatine Kinase Index 0.1 CK-MB (CK-2) 5.7 H 01/22/19 01/22/19 09:25 11:25 POC Glucometer 141 Creatine Kinase 2054 H Creatine Kinase Index 0.1 CK-MB (CK-2) 3.1 Current Medications Generic Name Dose Route Start Last Admin Trade Name Stephenq PRN Reason Stop Dose Admin Aspirin 81 mg 01/20/19 20:00 01/22/19 09:24 Ecotrin - PO 81 mg DAILY GILBERT Administration Heparin Sodium (Porcine) 5,000 unit 01/19/19 06:00 01/22/19 06:10 Heparin - SQ 5,000 unit TID GILBERT Administration Sodium Chloride 1,000 mls @ 150 mls/hr 01/20/19 17:00 01/22/19 10:18 Normal Saline - IV 150 mls/hr ASDIR GILBERT Administration Insulin Aspart 1 vial 01/19/19 07:00 01/22/19 11:27 Novolog Vial Sliding Scale - SQ Not Given TIDAC GILBERT Protocol Nicotine 14 mg 01/20/19 23:40 01/22/19 09:24 Nicoderm Patch - TD 14 mg DAILY GILBERT Administration Oxcarbazepine 900 mg 01/18/19 22:00 01/22/19 09:25 Trileptal PO 900 mg BID GILBERT Administration Rosuvastatin Calcium 5 mg 01/20/19 22:00 01/21/19 22:24 Crestor - PO 5 mg HS GILBERT Administration Home Medications Medication Instructions Recorded Aspirin [ASA -] 81 mg PO DAILY 01/18/19 Rosuvastatin Calcium [Crestor] 5 mg PO DAILY 01/18/19 metFORMIN HCL [Metformin HCl] 500 mg PO TID 01/18/19 Oxcarbazepine [Trileptal -] 900 mg PO BID #180 tablet 01/19/19 ASSESSMENT AND PLAN: 53 year old male with history of CVA 2016, Seizure Disorder, DM 2, HLD, brought in s/p 2 seizures with post-ictal agitation/confusion, requiring Midazolam. 1. Breakthrough Seizure Patient claims compliance with Trileptal - dose increased by Neuro CT Head - Multiple areas of encephalomalacia, no acute findings. Leukocytosis reactive - improving. Prolonged post-ictal state - now resolved for > 48 hours. AAO x 3. Neurologically intact. Evaluated by Neurology and cleared for discharge on increased Trileptal dose. 2. Acute Rhabdomyolysis Sec to multiple seizures Prolonged hospitalization due to worsening CPK - now trending down Renal function normal. Medically Stable for discharge. Adequate oral hydration advised. 3. Hx CVA CT head - large encephalomalacia seen in R occipital lobe, posterior aspect of R frontal lobe and in R parietal lobe, No acute intracranial pathology Carotid US (10/18/18): right internal carotid occluded; moderate plaques at left carotid Will resume Aspirin, Crestor. No need for further MRI as per Neuro. 4. DM 2 - Covered with sliding scale. To resume Metformin on discharge. 5. HTN - Started on norvasc 5mg - to continue as out-patient with close PCP follow-up of BP. DVT Px - Heparin SQ
[2019-01-22 15:35] VITALS: BP 136/75; PULSE 78
--- NOTE | 2019-01-22 18:32 | DS ---
Physical Exam: SUBJECTIVE: Patient seen and examined OBJECTIVE: Vital Signs Period Temp Pulse Resp BP Sys/Snyder Pulse Ox Last 24 Hr 98 F-980 F 73-88 18-20 136-160/75-98 95-96 PHYSICAL EXAM GENERAL: The patient is awake, alert, and fully oriented, in no acute distress. HEAD: Normal with no signs of trauma. EYES: PERRL, extraocular movements intact, sclera anicteric, conjunctiva clear. ENT: Ears normal, nares patent, oropharynx clear without exudates, moist mucous membranes. NECK: Trachea midline, full range of motion, supple. LUNGS: Breath sounds equal, clear to auscultation bilaterally, no wheezes, no crackles, no accessory muscle use. HEART: Regular rate and rhythm, S1, S2 without murmur, rub or gallop. ABDOMEN: Soft, nontender, nondistended, normoactive bowel sounds, no guarding, no rebound, no hepatosplenomegaly, no masses. EXTREMITIES: 2+ pulses, warm, well-perfused, no edema. NEUROLOGICAL: Cranial nerves II through XII grossly intact. Normal speech, gait not observed. PSYCH: Normal mood, normal affect. SKIN: Warm, dry, normal turgor, no rashes or lesions noted. LABS Laboratory Results - last 24 hr 01/22/19 01/22/19 01/22/19 06:08 09:25 11:25 POC Glucometer 119 141 Creatine Kinase 2054 H Creatine Kinase Index 0.1 CK-MB (CK-2) 3.1 01/22/19 16:13 POC Glucometer 140 Creatine Kinase Creatine Kinase Index CK-MB (CK-2) HOSPITAL COURSE: Date of Admission:01/18/19 Date of Discharge: 01/22/19 Minutes to complete discharge: 36 Discharge Summary Problems reviewed: Yes Reason For Visit: Seizure Condition: Improved - Instructions Diet, Activity, Other Instructions: YOUR VISIT You were admitted to the hospital because you experienced a seizure. While here , you received fluids and anti-seizure medication. You were also seen by a neurologist, whom recommends you continue your recent anti-seizure medication, Trileptal, in an increased dose. You had elevated CPK noted when you came into the hospital. This is an enzyme released by your muscles when you're having seizures. You were given IV fluids to help flush out the enzyme and into your urine. Please drink plenty of water. You would need to have your blood work repeated, to check the CPK level, on Thursday when you follow up with your primary care doctor to ensure levels normalize. MEDICATIONS Please take note of the following changes to your medications: - Trileptal 900mg by mouth twice a day. -Norvasc 5mg by mouth once per day. Continue your other home medications. - Aspirin 81 mg once a day - Metformin 500 mg three times a day - Crestor (rosuvastatin) 5 mg once a day ADDITIONAL CARE Please follow up with your primary care provider, Dr. Zapien, 1 week from today. Please make an appointment with your neurologist (Dr. Mills) in 1-2 weeks. ADDITIONAL INFORMATION Please call 911 or come to the emergency department if you experience shortness of breath, chest pain, headache, unusual bleeding, seizure, or any other alarming symptoms. Referrals: Milton Zapien MD [Primary Care Provider] - 1 Week Vlad Mills DO [Staff Physician] - Disposition: HOME - Home Medications Comprehensive Discharge Medication List: Ambulatory Orders Aspirin [ASA -] 81 mg PO DAILY 01/18/19 Rosuvastatin Calcium [Crestor] 5 mg PO DAILY 01/18/19 metFORMIN HCL [Metformin HCl] 500 mg PO TID 01/18/19 Oxcarbazepine [Trileptal -] 900 mg PO BID #180 tablet 01/19/19 Amlodipine Besylate [Norvasc -] 5 mg PO DAILY #30 tablet 01/22/19 This patient is new to me today: No Emergency Visit: No Critical Care patient: No - Discharge Referral Referred to [facility] No ATTENDING PHYSICIAN STATEMENT I saw and evaluated the patient. I reviewed the resident's note and discussed the case with the resident. I agree with the resident's findings and plan as documented. SUBJECTIVE: OBJECTIVE: ASSESSMENT AND PLAN:
--- NOTE | 2019-01-25 13:20 | DS ---
Physical Exam: SUBJECTIVE: 53 y/o M w PMH seizure d/o, DM2, HLD, and CVA seen at bedside today s/p witnessed seizure. Pt has no complaints today. Pt states he is doing well on increased dose of trileptal. He reports his previous abdominal pain is now discomfort or not present. He denies dark urine, back pain, PERAZA, vision change, CP, and SOB. Pt denies NVFD. OBJECTIVE: PHYSICAL EXAM GENERAL: The patient is awake, alert, and fully oriented, in no acute distress. HEAD: Normal with no signs of trauma. EYES: MARCOS, EOMI, w clearconjunctiva ENT: Ears normal, nares patent, oropharynx clear without exudates, moist mucous membranes. NECK: POS LEFT submandibular swelling consistent w pt reported h/o salivary gland stone. Trachea midline, full range of motion, supple. LUNGS: Breath sounds equal, clear to auscultation bilaterally, no wheezes, no crackles, no accessory muscle use. HEART: Regular rate and rhythm, S1, S2 without murmur, rub or gallop. ABDOMEN: Soft, nontender, nondistended, normoactive bowel sounds, no guarding, no rebound, no hepatosplenomegaly, no masses. EXTREMITIES: 2+ pulses, warm, well-perfused, no edema. NEUROLOGICAL: Cranial nerves III through XII grossly intact. Normal speech, normal gait today PSYCH: Normal mood, normal affect. 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 Warm, dry, normal turgor , no rashes or lesions noted. LABS 01/21/19 06:31 WBC 13.6 K/mm3 (4.0-10.0) H 01/19/19 06:15 Corrected WBC (auto) Cancelled 01/19/19 06:15 RBC 4.62 M/mm3 (4.00-5.60) 01/19/19 06:15 Hgb 13.8 GM/dL (11.7-16.9) 01/19/19 06:15 Hct 40.2 % (35.4-49) 01/19/19 06:15 MCV 86.8 fl (80-96) 01/19/19 06:15 MCH 29.9 pg (25.7-33.7) 01/19/19 06:15 MCHC 34.4 g/dl (32.0-35.9) 01/19/19 06:15 RDW 13.9 % (11.9-15.9) 01/19/19 06:15 Plt Count 274 K/MM3 (134-434) 01/19/19 06:15 MPV 7.0 fl (7.5-11.1) L 01/19/19 06:15 Absolute Neuts (auto) 17.9 K/mm3 (1.5-8.0) H 01/18/19 16:30 Total Counted 100 01/18/19 16:30 Neutrophils % 92.5 % (42.8-82.8) H 01/18/19 16:30 Neutrophils % (Manual) 94.0 % (42.8-82.8) H 01/18/19 16:30 Lymphocytes % 4.4 % (8-40) L 01/18/19 16:30 Lymphocytes % (Manual) 3.0 % (8-40) L 01/18/19 16:30 Monocytes % 2.8 % (3.8-10.2) L 01/18/19 16:30 Monocytes % (Manual) 3 % (3.8-10.2) L 01/18/19 16:30 Eosinophils % 0.0 % (0-4.5) 01/18/19 16:30 Basophils % 0.3 % (0-2.0) 01/18/19 16:30 Nucleated RBC % 0 % (0-0) 01/18/19 16:30 Differential Comment Man diff performed 01/18/19 16:30 Platelet Estimate Adequate 01/18/19 16:30 Platelet Comment 01/18/19 16:30 ESR 8 mm/hr (0-20) 01/19/19 06:15 Sodium 142 mmol/L (136-145) 01/21/19 06:31 Potassium 3.4 mmol/L (3.5-5.1) L 01/21/19 06:31 Chloride 106 mmol/L (98-107) 01/21/19 06:31 Carbon Dioxide 28 mmol/L (21-32) 01/21/19 06:31 Anion Gap 8 MMOL/L (8-16) 01/21/19 06:31 BUN 4.6 mg/dL (7-18) L 01/21/19 06:31 Creatinine 0.6 mg/dL (0.55-1.3) 01/21/19 06:31 Est GFR (CKD-EPI)AfAm 131.19 01/21/19 06:31 Est GFR (CKD-EPI)NonAf 113.19 01/21/19 06:31 POC Glucometer 140 UNITS (80-120) 01/22/19 16:13 Random Glucose 116 mg/dL (74-106) H 01/21/19 06:31 Lactic Acid 1.2 mmol/L (0.4-2.0) 01/19/19 09:40 Calcium 9.1 mg/dL (8.5-10.1) 01/21/19 06:31 Magnesium 2.0 mg/dL (1.8-2.4) 01/19/19 06:15 Total Bilirubin 1.1 mg/dL (0.2-1) H 01/21/19 06:31 AST 71 U/L (15-37) H 01/21/19 06:31 ALT 36 U/L (13-61) 01/21/19 06:31 Alkaline Phosphatase 55 U/L (45-117) 01/21/19 06:31 Creatine Kinase 2054 U/L (26-308) H 01/22/19 09:25 Creatine Kinase Index 0.1 % (0.0-5.0) 01/22/19 09:25 CK-MB (CK-2) 3.1 ng/mL (0.5-3.6) 01/22/19 09:25 C-Reactive Protein 1.3 MG/DL (0.00-0.3) H 01/19/19 06:15 Total Protein 6.7 g/dl (6.4-8.2) 01/21/19 06:31 Albumin 4.0 g/dl (3.4-5.0) 01/21/19 06:31 Vitamin B12 898 pg/ml (193-986) 01/19/19 06:15 TSH 2.27 uIU/ml (0.358-3.74) 01/19/19 06:15 HOSPITAL COURSE: Date of Admission:01/18/19 53 y/o M w PMH seizure d/o, DM2, HLD, and CVA, admitted for care of seizure w post-inctal state and rhabdomyolysis. Pt being treated with increased anti- seizure and fluids. Breakthrough seizure diagnoses as pt was compliant w trileptal and in contact w neurologist for tailored treatment. On admission pt given Keppra. CT Head showed multiple areas of encephalomalacia but no acute findings. A leukocytosis was appreciated but likely reactive and improved. There was a prolonged post-ictal state with agitation that resolved over 1-2 days. Neurology on board; pt's primary neurologist, Dr. Mills. During the stay , the pt experienced acute rhabdomyolysis, most likely d/t seizure. Clinicall the pt experienced abdominal soreness, which subsided. Pt hydrated appropriatel and monitored, till CK normalized. Renal function within normal limits. Fluid boluses resulted in hypertensive BP measure, which responded to Norvasc 5mg. Pt had h/o CVA; present CT head NEG for new findings. Carotid US (10/18/18) showed right internal carotid occluded; moderate plaques at left carotid and so aspirin and crestor resumed. No need for further MRI per neuro. DM treated with ISS and home regimen held. Pt dc to home. Date of Discharge: 01/25/19 Emeka Allen MD Minutes to complete discharge: 40 Discharge Summary Reason For Visit: Seizure Condition: Improved - Instructions Diet, Activity, Other Instructions: YOUR VISIT You were admitted to the hospital because you experienced a seizure. While here , you received fluids and anti-seizure medication. You were also seen by a neurologist, whom recommends you continue your recent anti-seizure medication, Trileptal, in an increased dose. You had elevated CPK noted when you came into the hospital. This is an enzyme released by your muscles when you're having seizures. You were given IV fluids to help flush out the enzyme and into your urine. Please drink plenty of water. You would need to have your blood work repeated, to check the CPK level, on Thursday when you follow up with your primary care doctor to ensure levels normalize. MEDICATIONS Please take note of the following changes to your medications: - Trileptal 900mg by mouth twice a day. -Norvasc 5mg by mouth once per day. Continue your other home medications. - Aspirin 81 mg once a day - Metformin 500 mg three times a day - Crestor (rosuvastatin) 5 mg once a day ADDITIONAL CARE Please follow up with your primary care provider, Dr. Zapien, 1 week from today. Please make an appointment with your neurologist (Dr. Mills) in 1-2 weeks. ADDITIONAL INFORMATION Please call 911 or come to the emergency department if you experience shortness of breath, chest pain, headache, unusual bleeding, seizure, or any other alarming symptoms. Referrals: Milton Zapien MD [Primary Care Provider] - 1 Week Vlad Mills DO [Staff Physician] - Disposition: HOME - Home Medications Comprehensive Discharge Medication List: Ambulatory Orders Aspirin [ASA -] 81 mg PO DAILY 01/18/19 Rosuvastatin Calcium [Crestor] 5 mg PO DAILY 01/18/19 metFORMIN HCL [Metformin HCl] 500 mg PO TID 01/18/19 Oxcarbazepine [Trileptal -] 900 mg PO BID #180 tablet 01/19/19 Amlodipine Besylate [Norvasc -] 5 mg PO DAILY #30 tablet 01/22/19 This patient is new to me today: No Emergency Visit: No Critical Care patient: No - Discharge Referral Referred to [facility] No ATTENDING PHYSICIAN STATEMENT I saw and evaluated the patient. I reviewed the resident's note and discussed the case with the resident. I agree with the resident's findings and plan as documented. SUBJECTIVE: OBJECTIVE: ASSESSMENT AND PLAN:
== END 2019-01-22 17:52 | disposition home or self-care (01) | DRG 101 ==
LOC: JER 13:47 → JERBED 17:57 → J7W 20:42
PROVIDERS: ADMIT Internal Medicine
DX: G40.909 Epilepsy, unspecified, not intractable, without status epilepticus (principal); M62.82 Rhabdomyolysis; E11.9 Type 2 diabetes mellitus without complications; Z88.0 Allergy status to penicillin; G93.89 Other specified disorders of brain; I65.21 Occlusion and stenosis of right carotid artery; I10 Essential (primary) hypertension; Z86.73 Personal history of transient ischemic attack (TIA), and cerebral infarction without residual deficits; D72.828 Other elevated white blood cell count
CPT/HCPCS: 36415; 70450-TC; 71045-TC-FY; 80048; 80053; 80307; 81003; 82550; 82553; 82607; 82962; 83605; 83735; 84443; 85025; 85027; 85610; 85651; 86038; 86140; 86431; 86593; 97116-GP; 97161-GP; 99285-25; J1644; J7030

== ENCOUNTER 2019-03-28 14:50 | Emergency (ER) | payer OTHER, BC ==
[2019-03-28 15:02] VITALS: BMI 25.8
[2019-03-28] MEDS ORDERED: LORazepam 2 MG/ML SDV VIAL ONE ×3 (15:08→15:43)
[2019-03-28] MEDS ORDERED: RAPID SEQUENCE INTUBATION KIT NR ONE (15:33)
--- NOTE | 2019-03-28 15:43 | PDOC ---
Attending Attestation - Resident Resident Name: BerkowitzJordan - ED Attending Attestation I have performed the following: I have examined & evaluated the patient, The case was reviewed & discussed with the resident, I agree w/resident's findings & plan, Exceptions are as noted - HPI HPI: 03/28/19 15:47 53y M hx of CVA (2016), DM2, Seizures (on Trileptal) presents with seizures - Per the he has been well since his prior seizures in January when he was admitted to the hospital and had his medications increased. Earlier this afternoon the patient had a witnessed seizure with return to baseline mental status, then had another seizure when the called EMS. The notes that the patient was a bit somnolent after the second seizure as well as in the ED. in the ED the patient had another 2 seizures that were tonic-clonic, without return to baseline mental status. The patient was given 2 mg of Ativan after each seizure. seizure like activity appeared very fine, eyes were nondeviated ( loking sraight) with pupils reactive to light approx 3mm. The notes the patient is compliant with his medications. No recent fevers, cough, abdominal pain, diarrhea per the . PMD Neuro: Dr Ocasio - Physicial Exam PE: 03/28/19 16:39 GENERAL: The patient is somnolent HEAD: Normocephalic, atraumatic. EYES: pupils 3mm and reactive to light, no ndeviated ENT: Normal voice, Moist mucous membranes. NECK: Normal range of motion, supple LUNGS: rhonchi b/l, sonorous breathing (sp ativan) HEART: slghtly tachycardic ABDOMEN: Soft, nontender, No guarding, no rebound. No CVA tenderness EXTREMITIES: Nno edema. NEUROLOGICAL: somonolent/postictal PSYCH: unable to asess SKIN: Warm, Dry, normal turgor, - Critical Care Time Total Critical Care Time: 95 Critical Care Statement: The care of this patient involved high complexity decision making to prevent further life threatening deterioration of the patient 's condition and/or to evaluate & treat vital organ system(s) failure or risk of failure. - Medical Decision Making 03/28/19 15:49 Concern for status epilepticus Will obtain CT to rule out bleed and other acute pathology Will start the patient on fosphenytoin Will discuss with neurology 03/28/19 16:27 03/28/19 16:38 case dw kaiser ocasio agreed with fos will admit for futher mangement for status epliepticus 03/28/19 16:41 03/28/19 18:26 pt has been reassessed ultiple times - his mental status sesm to be improving - he is now withdrawing from pain as well as withdrawing when I scratch his feet. He is still very somnolent and he is nonverbal however he does seem like he tries to open his eyes after painful stimulus and is seasoning. Earlier there was concern for possible nonconvulsive status however he is currently likely not seizing. We will continue to monitor. Will transfer to [facility] for further evaluation of status epilepticus. Heart Score/ECG Review - ECG Impressions Comment:: 03/28/19 18:28 Twelve-lead EKG was performed and reviewed by me. There is normal sinus rhythm with a normal rate. Rate of 93 Right bundle branch block Normal R wave progression
[2019-03-28] MEDS ORDERED: FOSPHENYTOIN SODIUM 100 MG/2 ML VIAL IVPUSH ONE ×2 (15:44→16:27)
[2019-03-28 16:27] LABS: BASO % 0.2 % (0-2.0); HEMATOCRIT 46.7 % (35.4-49); HEMOGLOBIN 15.4 GM/dL (11.7-16.9); LYMPH % 6.6 % (8-40); MCH 29.3 pg (25.7-33.7); MEAN CELL VOLUME 88.7 fl (80-96); MEAN PLT VOLUME 6.2 fl (7.5-11.1); MONO % 2.2 % (3.8-10.2); PLATELET COUNT 356 K/MM3 (134-434); RBC 5.26 M/mm3 (4.00-5.60); RDW 14.5 % (11.9-15.9); WHITE BLOOD COUNT 14.5 K/mm3 (4.0-10.0)
--- NOTE | 2019-03-28 16:27 | PDOC ---
History of Present Illness - General Chief Complaint: Seizure Stated Complaint: SEIZURE Time Seen by Provider: 03/28/19 15:13 History Source: Parent(s) ( at bedside.), Old Records Exam Limitations: Unresponsive - History of Present Illness Initial Comments: HPI: 53 y/o male presenting to [facility] ER complaining of seizure activity. witnessed two tonic-clonic seizures at home. Returned to baseline after the first but not the second. Arrived to this department and able to answer some questions but not at baseline. Seized two more times during initial evaluation. No return to baseline. reports the pt fell into a wall during initial seizure but was able to break his fall. She expressed concern that be could possibly have fallen during the day as he has frequent gait disturbance after CVA in 2016. further reports the pt has a h/o of seizures which started after CVA. Was admitted to this facility in January for seizures. After admission, pt became complaint with oxcarbazepine (Trileptal) medication. reports low suspicion for recent missed doses. She further denies any recent illness or change in behavior. Neurologist: Dr. Mills Medical Hx: - CVA (2016) - T2DM - Seizure disorder, managed w/ Oxcarbazepine Review of Systems: Unable to assess secondary to clinical condition Physical Examination: Constitutional- Unresponsive adult male. Head- Normocephalic. No obvious external signs of trauma. Eyes- Pupils 4mm and PERRL bilaterally. Gaze fixed forward. Sclerae white. Conjunctiva moist and not injected. Cardiovascular / Chest- Regular rate and regular rhythm. No murmur, rubs, clicks , or gallops. Peripheral pulses- radial pulses full. Respiratory- Snoring respirations. Breath sounds bilaterally. No wheezes, rales , or rhonchi. Gastrointestinal- abdomen is soft and non-distended. Neuro- Unresponsive. No response to painful stimuli in upper or lower extremities. Frequent and varied tremulous movements localized in various places throughout the extremities and trunk. Unable to reproduce with stimuli. Skin- Warm, diaphoretic, and intact. No bruising, rashes, or other lesions. MDM: 53 y/o male presenting in suspected status epilepticus. Afebrile. Physical exam as described above. Nasal trumpet inserted given pts snoring respirations. Maintaining airway. Head CT unremarkable for acute findings. Labs remarkable for leukocytosis and lactic acidosis suspected to be secondary to seizures. CMP revealed mild hyponatremia, low suspicion as etiology of seizures. Given total of 6mg of Ativan in the department. Loaded with 1500mg of Fosphenytoin. Pt remained unresponsive for the first three hours of ED course. ED Attending consulted Dr. Rosario, pts neurologist of record. Agreed with loading of Fosphenytoin. Telephone discussion with Dr. Tafoya, physician covering for Dr. Rosario, after pt failed to return to baseline. Agreed with plan to initiate benzodiazepine drip and transfer to [facility] for continuous EEG monitoring. 28 Mar 2019 17:55 PM Transfer initiated with [facility]. Awaiting call back from physician. ED team elected to not intubate the pt or initiate Versed or Propofol drip after pt began to withdrawal from painful stimuli. 19 Mar 2019 19:[address] Lazo of critical care service. Will accept the pt for transfer. Pt initially to be evaluated in the emergency department with critical care consult and initiation of continuous EEG while awaiting bed availability. 28 Mar 2019 19:32 PM Pt signed out to resident Dr. Weaver after he was verbally appraised of the pts HPI, current ED course, and plan of management. Will monitor neuro status while awaiting arrival of ALS transfer unit. Past History - Past Medical History Allergies/Adverse Reactions: Allergies Allergy/AdvReac Type Severity Reaction Status Date / Time Penicillins Allergy Verified 03/28/19 15:02 Home Medications: Ambulatory Orders Aspirin [ASA -] 81 mg PO DAILY 01/18/19 Rosuvastatin Calcium [Crestor] 5 mg PO DAILY 01/18/19 Oxcarbazepine [Trileptal -] 900 mg PO BID #180 tablet 01/19/19 Nicotine [Nicotine Patch] 1 each TD DAILY 03/28/19 CVA: Yes (08/2015) COPD: No Diabetes: Yes Seizures: Yes - Psycho Social/Smoking Cessation Hx Smoking History: Unknown if ever smoked Have you smoked in the past 12 months: No Number of Cigarettes Smoked Daily: 40 Information on smoking cessation initiated: No 'Breaking Loose' booklet given: 08/09/15 Hx Alcohol Use: No Drug/Substance Use Hx: No Substance Use Type: None *Physical Exam - Vital Signs Last Vital Signs Temp Pulse Resp BP Pulse Ox 99.7 F H 112 H 20 160/102 H 99 10/21/19 16:07 03/28/19 15:00 03/28/19 15:00 03/28/19 15:00 03/28/19 15:00 ED Treatment Course - LABORATORY CBC & Chemistry Diagram: 03/28/19 16:08 03/28/19 16:08 - ADDITIONAL ORDERS Additional order review: Laboratory Results 03/28/19 15:18 POC Glucometer 203 03/28/19 15:18 POC Glucometer 203 - Medications Given in the ED: ED Medications Discontinued Medications Generic Name Dose Route Start Last Admin Trade Name Maru PRN Reason Stop Dose Admin Lorazepam 2 mg 03/28/19 15:34 03/28/19 15:10 Ativan Injection - IVPUSH 03/28/19 15:35 2 mg ONCE ONE Administration Lorazepam 2 mg 03/28/19 15:35 03/28/19 15:35 Ativan Injection - IVPUSH 03/28/19 15:36 2 mg ONCE ONE Administration Discharge - Discharge Information Problems reviewed: Yes Clinical Impression/Diagnosis: Seizure Condition: Guarded Disposition: TRANSFER ACUTE CARE/OTHER HOSP - Admission No - Follow up/Referral Referrals: Milton Zapien MD [Primary Care Provider] - - Patient Discharge Instructions - Post Discharge Activity - Transfer to Acute Care Facility Receiving Facility Name: [facility] Accepting Physician:: Dr. Lazo
[2019-03-28 16:29] LABS: EPI CELLS 5.3 /HPF (0-5/HPF); HYALINE CASTS 12 /lpf (0-8); URINE APPEARANCE CLEAR; URINE BACTERIA 6.7 /hpf (NEGATIVE); URINE BILIRUBIN NEGATIVE (NEGATIVE); URINE COLOR YELLOW; URINE GLUCOSE (UA) 1+ (NEGATIVE); URINE KETONE TRACE (NEGATIVE); URINE LEUK ESTERASE NEGATIVE (NEGATIVE); URINE NITRITE NEGATIVE (NEGATIVE); URINE PROTEIN 3+ (NEGATIVE); URINE RBC 2 /hpf (0-4); URINE UROBILINOGEN 0.2 mg/dL (0.2-1.0); URINE WBC 3 /hpf (0-5)
[2019-03-28 16:39] LABS: INR 0.99 (0.83-1.09); PROTHROMBIN TIME (PATIENT) 11.7 SEC (9.7-13.0)
[2019-03-28 16:54] LABS: ALBUMIN 4.4 g/dl (3.4-5.0); BILIRUBIN,TOTAL 0.3 mg/dL (0.2-1); BLOOD UREA NITROGEN 9.4 mg/dL (7-18); CALCIUM 8.9 mg/dL (8.5-10.1); POTASSIUM 4.2 mmol/L (3.5-5.1); TOT PROT 7.6 g/dl (6.4-8.2)
[2019-03-28 17:18] LABS: PLATELET ESTIMATE NORMAL
--- NOTE | 2019-03-28 19:11 | PDOC ---
*Physical Exam - Vital Signs Last Vital Signs Temp Pulse Resp BP Pulse Ox 99.7 F H 88 24 H 133/83 97 03/28/19 16:07 03/28/19 18:29 03/28/19 18:29 03/28/19 18:29 03/28/19 18:29 ED Treatment Course - LABORATORY CBC & Chemistry Diagram: 03/28/19 16:08 03/28/19 16:08 - ADDITIONAL ORDERS Additional order review: Laboratory Results 03/28/19 03/28/19 03/28/19 17:33 16:13 16:08 PT with INR 11.70 INR 0.99 Sodium Potassium Chloride Carbon Dioxide Anion Gap BUN Creatinine Est GFR (CKD-EPI)AfAm Est GFR (CKD-EPI)NonAf POC Glucometer Random Glucose Lactic Acid Calcium Total Bilirubin AST ALT Alkaline Phosphatase Total Protein Albumin Urine Color Yellow Urine Appearance Clear Urine pH 5.0 Ur Specific [place] 1.017 Urine Protein 3+ H Urine Glucose (UA) 1+ H Urine Ketones Trace H Urine Blood 1+ H Urine Nitrite Negative Urine Bilirubin Negative Urine Urobilinogen 0.2 Ur Leukocyte Esterase Negative Urine WBC (Auto) 3 Urine RBC (Auto) 2 Urine Casts (Auto) 12 U Epithel Cells (Auto) 5.3 U Sm Round Cell (Auto) Negative Urine Bacteria (Auto) 6.7 Alcohol, Quantitative < 3.0 03/28/19 03/28/19 03/28/19 16:08 16:08 15:18 PT with INR INR Sodium 128 L Potassium 4.2 Chloride 92 L Carbon Dioxide 24 Anion Gap 12 BUN 9.4 Creatinine 1.0 Est GFR (CKD-EPI)AfAm 97.77 Est GFR (CKD-EPI)NonAf 84.35 POC Glucometer 203 Random Glucose 162 H Lactic Acid 5.8 H* Calcium 8.9 Total Bilirubin 0.3 AST 17 ALT 26 Alkaline Phosphatase 76 Total Protein 7.6 Albumin 4.4 Urine Color Urine Appearance Urine pH Ur Specific [place] Urine Protein Urine Glucose (UA) Urine Ketones Urine Blood Urine Nitrite Urine Bilirubin Urine Urobilinogen Ur Leukocyte Esterase Urine WBC (Auto) Urine RBC (Auto) Urine Casts (Auto) U Epithel Cells (Auto) U Sm Round Cell (Auto) Urine Bacteria (Auto) Alcohol, Quantitative 03/28/19 03/28/19 16:08 15:18 RBC 5.26 MCV 88.7 MCHC 33.0 RDW 14.5 MPV 6.2 L D Neutrophils % 91.0 H Lymphocytes % 6.6 L D Monocytes % 2.2 L Eosinophils % 0.0 Basophils % 0.2 POC Glucometer 203 - Medications Given in the ED: ED Medications Discontinued Medications Generic Name Dose Route Start Last Admin Trade Name Stephenq PRN Reason Stop Dose Admin Fosphenytoin Sodium 1,600 mg 03/28/19 15:44 03/28/19 16:28 Cerebyx - IVPUSH 03/28/19 15:45 Not Given ONCE ONE Fosphenytoin Sodium 1,500 mg 03/28/19 16:27 03/28/19 17:00 Cerebyx - IVPUSH 03/28/19 16:28 1,500 mg ONCE ONE Administration Lorazepam 2 mg 03/28/19 15:34 03/28/19 15:10 Ativan Injection - IVPUSH 03/28/19 15:35 2 mg ONCE ONE Administration Lorazepam 2 mg 03/28/19 15:35 03/28/19 15:35 Ativan Injection - IVPUSH 03/28/19 15:36 2 mg ONCE ONE Administration Medical Decision Making - Medical Decision Making 03/28/19 19:[address] Berkowitz. Patient is a 53 yo male w/ history of DMII, seizure disorder (following prior CVA in 2016, on Trileptal) who presents s/p 2 tonic-clonic seizures at home. Patient returned to baseline following 1st however not 2nd. who is with him reported concern for fall as well as patient has occasional gait disturbance. Patient denies any changes in medication or missed dosing. Patient exam significant for withdrawing from pain however not oriented; concern for status epilepticus prompted prior team to arrange for transfer to [facility] for EEG (accepting physician Dr. Lazo). Patient discussed with Neurologist Lina who agreed with plan. Facility currently working on creating bed however plan for now that patient will go to ED to start continuous EEG until bed available. 03/28/19 21:37 Patient exam somewhat improved with patient responsive to voice and able to verbalized short responses. EMS arrived and readying patient for transfer per previous plan. Discharge - Discharge Information Problems reviewed: Yes Clinical Impression/Diagnosis: Seizure Condition: Guarded Disposition: TRANSFER ACUTE CARE/OTHER HOSP - Follow up/Referral Referrals: Milton Zapien MD [Primary Care Provider] - - Patient Discharge Instructions - Post Discharge Activity
[2019-03-28 19:22] LABS: COCAINE, UR NEGATIVE ng/ml (CUTOFF=300); METHADONE, UR NEGATIVE ng/ml (CUTOFF=300); OPIATES, URI NEGATIVE ng/ml (CUTOFF=300); PHENCYCLIDINE,URINE NEGATIVE ng/ml (CUTOFF=25); URINE AMPHETAMINES NEGATIVE ng/ml (CUTOFF=500); URINE BARBITURATES NEGATIVE ng/ml (CUTOFF=200); URINE BENZODIAZEPINES NEGATIVE ng/ml (CUTOFF=200)
[2019-03-28 20:43] VITALS: PULSE 86; TEMP 98.4
[2019-03-28 21:39] VITALS: BP 105/71
--- NOTE | 2019-03-29 12:10 | EKG ---
Test Reason : Blood Pressure : / mmHG Vent. Rate : 093 BPM Atrial Rate : 093 BPM P-R Int : 172 ms QRS Dur : 136 ms QT Int : 388 ms P-R-T Axes : 064 -05 054 degrees QTc Int : 482 ms NORMAL SINUS RHYTHM POSSIBLE LEFT ATRIAL ENLARGEMENT RIGHT BUNDLE BRANCH BLOCK ABNORMAL ECG NO PREVIOUS ECGS AVAILABLE Confirmed by Brock Peguero MD ([id number]) on 03/29/2019 12:10:11 PM Referred By: Confirmed By:Brock Peguero MD
== END 2019-03-28 21:57 | disposition short-term general hospital (02) ==
LOC: JER 14:50
PROC: 3E033GC Introduction of Other Therapeutic Substance into Peripheral Vein, Percutaneous Approach (ICD-10-PCS; principal; 2019-03-28)
DX: G40.909 Epilepsy, unspecified, not intractable, without status epilepticus (principal); E11.9 Type 2 diabetes mellitus without complications; Z86.73 Personal history of transient ischemic attack (TIA), and cerebral infarction without residual deficits; Z88.0 Allergy status to penicillin
CPT/HCPCS: 36415; 70450-TC; 71045-TC-FY; 80053; 80183; 80307; 81003; 82140; 82962; 83605; 85025; 85610; 93005; 93010; 99285-25

== ENCOUNTER 2019-05-11 05:42 | Emergency (ER) | payer OTHER, BC ==
--- NOTE | 2019-05-11 05:49 | PDOC ---
History of Present Illness - General Stated Complaint: SEIZURES Time Seen by Provider: 05/11/19 05:46 - History of Present Illness Initial Comments: Per EMS -3:30 am had 1st seizure for about ten seconds. The who is a nurse then let him go back to bed. One hour later he seized for 2 minutes - then she called EMS. The patient was completely unresponsive for around 15 minutes. He has a known seizure disorder and has been taking his 750 of keppra every night. Seizures were tonic clonic. Patient returned to baseline between seizures. Patient is now A&O x4 here in the ER. 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 He became incontinent after the 2nd seizure and by accidentally wet his pants. 7 minutes into being in the ER the patient started seizing and gasping for air. The Patient is not able to provide any history. The came into the ER and states his seizure disorder is controlled with oxcarbazepine(Trilepta) and lacosamide(Vinpat) Neurologist: Dr. Mills Allergies: penicillins PCP: Milton Sawyer Last time he was in this ER he was transfered over to [facility] Neuro ICU for continuous EEG monitoring. - in the ER consents to transfer over to [facility] - Using Transfer center to initiate trasnfer to [facility] Dr Vazquez -Critical care physician at [facility] - Says they have no beds at the present time but we can transfer patient to the ED Dr. corona - ED attending at [facility]- [phone]. Would like constant updates. Past History - Past Medical History Allergies/Adverse Reactions: Allergies Allergy/AdvReac Type Severity Reaction Status Date / Time Penicillins Allergy Verified 03/28/19 15:02 Home Medications: Ambulatory Orders Aspirin [ASA -] 81 mg PO DAILY 01/18/19 Rosuvastatin Calcium [Crestor] 5 mg PO DAILY 01/18/19 Oxcarbazepine [Trileptal -] 900 mg PO BID #180 tablet 01/19/19 Nicotine [Nicotine Patch] 1 each TD DAILY 03/28/19 CVA: Yes (08/2015) COPD: No Diabetes: Yes Seizures: Yes - Psycho Social/Smoking Cessation Hx Smoking History: Unknown if ever smoked Have you smoked in the past 12 months: No Number of Cigarettes Smoked Daily: 40 'Breaking Loose' booklet given: 08/09/15 Hx Alcohol Use: No Drug/Substance Use Hx: No Substance Use Type: None Review of Systems - Review of Systems Able to Perform ROS?: No (Seizing) *Physical Exam - Physical Exam General Appearance: Yes: Severe Distress HEENT: positive: ONEYDA, Excessive drooling Neck: positive: Trachea midline, Supple Respiratory/Chest: positive: Lungs Clear, Rapid RR Cardiovascular: positive: Regular Rhythm, Regular Rate, S1, S2 Vascular Pulses: Dorsalis-Pedis (R): 2+, Doralis-Pedis (L): 2+ Gastrointestinal/Abdominal: positive: Normal Bowel Sounds, Flat, Soft Rectal Exam: positive: deferred Lymphatic: negative: Adenopathy Musculoskeletal: positive: Normal Inspection. negative: Decreased Range of Motion Extremity: positive: Normal Capillary Refill, Normal Inspection, Normal Range of Motion Integumentary: positive: Normal Color, Dry, Warm Neurologic: positive: Respond to painful stimul, Confused, Disoriented. negative: Fully Oriented, Alert, Normal Mood/Affect, Normal Response Procedures - Intubation Time of Intubation: 06:45 Intubation Method: orotracheal Blade used: Mac Tube Size (Fr): 7.5 Medications: Rocuronium, Versed Tube position @ lip (cm): 22 Tube position confirmed by: Direct visualization, CO2 detector, Chest x-ray, Breath sounds Breath Sounds after Intubation: equal Intubation Complications: no complications Post Intubation Xray: Yes Medical Decision Making - Critical Care Time Total Critical Care Time (minutes): 60 Critical Care Statement: The care of this patient involved high complexity decision making to prevent further life threatening deterioration of the patient 's condition and/or to evaluate & treat vital organ system(s) failure or risk of failure. - Medical Decision Making Per EMS -3:30 am had 1st seizure for about ten seconds. The who is a nurse then let him go back to bed. One hour later he seized for 2 minutes - then she called EMS. The patient was completely unresponsive for around 15 minutes. He has a known seizure disorder and has been taking his 750 of keppra every night. Seizures were tonic clonic. Patient returned to baseline between seizures. Patient is now A&O x4 here in the ER. 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 He became incontinent after the 2nd seizure and by accidentally wet his pants. 7 minutes into being in the ER the patient started seizing and gasping for air. The Patient is not able to provide any history. The came into the ER and states his seizure disorder is controlled with oxcarbazepine(Trilepta) and lacosamide(Vinpat) Neurologist: Dr. Mills Allergies: penicillins PCP: Milton Sawyer Last time he was in this ER he was transfered over to [facility] Neuro ICU for continuous EEG monitoring. - in the ER consents to transfer over to [facility] - Using Transfer center to initiate trasnfer to [facility] Dr Vazquez -Critical care physician at [facility] - Says they have no beds at the present time but we can transfer patient to the ED Dr. corona - ED attending at [facility]- [phone]. Would like constant updates. Fingerstick: 197 Plan: Labs, Head CT, Transfer Spoke with transfer center who says they are [facility] the ambulance and it will be here in 20 minutes Patient continued to seize despite 4 mg of ativan - Decision was made to intubate the patient and place him on a propofol drip. - 4 mg of ativan and versed used for sedation, 50 mg of roccuronium for paralytic. - Patient intubated succesfully with bilateral breath sounds - CXR ordered for confirmation - 2nd 18 Gauge IV plaved in right AC - EMS here for transfer - I spoke with Dr. Corona over at [facility] and informed her that the patient is now intubated and on a propofol drip - We will not obtain the head CT here in the ER bc ambulance is here and Dr. Corona states that she will make sure he gets a head CT over at [facility] - EMS took patient out of the ER at 7:18 AM Discharge - Discharge Information Problems reviewed: Yes Clinical Impression/Diagnosis: Status epilepticus, Seizure Condition: Critical Disposition: TRANSFER ACUTE CARE/OTHER HOSP - Admission No - Follow up/Referral Referrals: Milton Zapien MD [Primary Care Provider] - - Patient Discharge Instructions - Post Discharge Activity - Transfer to Acute Care Facility Receiving Facility Name: [facility] Accepting Physician:: Dr. Corona in ED, Dr. Vazquez in Neuro ICU Transfer Comment: Status Epilepticus, intubated on propofol drip
[2019-05-11] MEDS ORDERED: levETIRAcetam 500 MG/5 ML INJECTION VIAL IVPB ONE ×2 (05:53)
[2019-05-11] MEDS ORDERED: LORazepam 2 MG/ML SDV VIAL ONE ×3 (05:54→06:31)
--- NOTE | 2019-05-11 06:01 | PDOC ---
Attending Attestation - Resident Resident Name: Dion Kennedy - ED Attending Attestation I have performed the following: I have examined & evaluated the patient, The case was reviewed & discussed with the resident, I agree w/resident's findings & plan - HPI HPI: 05/11/19 06:00 see resident hpi - Physicial Exam PE: 05/11/19 06:00 agree with resident exam - Medical Decision Making 05/11/19 06:00 53-year-old male with multiple seizures, most recently while in the emergency department Ativan 2 mg given IV Patient has required neuro ICU transfer to [facility] recently Due to repeated seizure activity call will be placed to [facility] after discussion with the family for possible transfer Plan for labs, continued monitoring and CT scan of the brain
[2019-05-11 06:05] VITALS: TEMP 98.3; BMI 26.4
[2019-05-11] MEDS ORDERED: SODIUM CHLORIDE 1,000 ML IV ONE (06:13)
[2019-05-11] MEDS ORDERED: RAPID SEQUENCE INTUBATION KIT NR ONE ×2 (06:24→07:06)
[2019-05-11] MEDS ORDERED: ROCURONIUM BROMIDE 50 MG/5 ML VIAL IV ONE (06:30)
[2019-05-11] MEDS ORDERED: PROPOFOL 1,000,000 MCG/100 ML VIAL ONE (06:41)
[2019-05-11] MEDS ORDERED: PROPOFOL 1,000,000 MCG/100 ML VIAL IVPB SCH (06:45)
[2019-05-11] MEDS ORDERED: ROCURONIUM BROMIDE 50 MG/5 ML SYRINGE IV ONE (07:00)
[2019-05-11 07:22] VITALS: BP 160/90; PULSE 119
[2019-05-11 07:48] LABS: BASO % 0.8 % (0-2.0); EOS % 0.8 % (0-4.5); HEMATOCRIT 45.5 % (35.4-49); HEMOGLOBIN 15.1 GM/dL (11.7-16.9); LYMPH % 21.1 % (8-40); MCH 29.8 pg (25.7-33.7); MCHC 33.2 g/dl (32.0-35.9); MEAN CELL VOLUME 89.9 fl (80-96); MEAN PLT VOLUME 6.7 fl (7.5-11.1); MONO % 5.1 % (3.8-10.2); NEUT % 72.2 % (42.8-82.8); PLATELET COUNT 359 K/MM3 (134-434); RBC 5.06 M/mm3 (4.00-5.60); RDW 14.9 % (11.9-15.9); WHITE BLOOD COUNT 13.1 K/mm3 (4.0-10.0)
[2019-05-11 08:09] LABS: ALK PHOS 75 U/L (45-117); ANION GAP 14 MMOL/L (8-16); BILIRUBIN,TOTAL 0.2 mg/dL (0.2-1); BLOOD UREA NITROGEN 12.5 mg/dL (7-18); CHLORIDE 92 mmol/L (98-107); CO2 22 mmol/L (21-32); CREATININE 0.8 mg/dL (0.55-1.3); GLUCOSE,RANDOM 189 mg/dL (74-106); POTASSIUM 3.8 mmol/L (3.5-5.1); SGOT/AST 18 U/L (15-37); SGPT/ALT 20 U/L (13-61); SODIUM 128 mmol/L (136-145); TOT PROT 7.1 g/dl (6.4-8.2)
== END 2019-05-11 07:05 | disposition short-term general hospital (02) ==
LOC: JER 05:42
PROC: 3E033GC Introduction of Other Therapeutic Substance into Peripheral Vein, Percutaneous Approach (ICD-10-PCS; principal; 2019-05-11)
PROC: 3E033NZ Introduction of Analgesics, Hypnotics, Sedatives into Peripheral Vein, Percutaneous Approach (ICD-10-PCS; 2019-05-11)
DX: G40.901 Epilepsy, unspecified, not intractable, with status epilepticus (principal); Z88.0 Allergy status to penicillin
CPT/HCPCS: 36415; 71045-TC-FY; 80053; 82550; 82553; 82962; 84484; 85025; 99284-25

== ENCOUNTER 2019-06-26 04:54 | Emergency (ER) | payer OTHER, BC ==
[2019-06-26] MEDS ORDERED: LORazepam 2 MG/ML SDV VIAL ONE ×2 (05:31→10:29)
[2019-06-26 05:32] VITALS: TEMP 98; BMI 35.4
--- NOTE | 2019-06-26 05:32 | PDOC ---
Attending Attestation - Resident Resident Name: Terell Cohen - ED Attending Attestation I have performed the following: I have examined & evaluated the patient, The case was reviewed & discussed with the resident, I agree w/resident's findings & plan - HPI HPI: 06/26/19 05:34 Pt comes for seizure d/o. He had another seizure here. Pt has no fevers. Seizures originated in the past year after a CVA and he has likely scar tissue focus that makes him seize. - Physicial Exam PE: 06/26/19 06:52 Pt is afebrile Pt is awake and alert and following commands Heart RRR Lungs CTA B Abd soft NT ND no flank pain - Medical Decision Making 06/26/19 05:20 ED Course Witnessed seizure activity, at 0540 for approximately 1 minute -Pt given Ativan 2mg IV once w/ resolution of seizure activity Pt was hypoxic to 80s s/p seizure; on non-rebreather 95-97% Labs sent Pt with L crackles, will obtain CXR 06/26/19 05:58 At this time pt is arousable voice, oriented x3, and denies any symptoms 06/26/19 06:45 Hyponatremia noted, pt receiving NS-- likely soide effect of Vimpat. -Of note, reports that at each admission pt has required Na tablets 2/2 hyponatremia 2/2 Vimpat but their PCP has not wanted to continue them as an outpt in the past -NS ordered 06/26/19 06:55 Pt signed out to day team Pending CXR
[2019-06-26] MEDS ORDERED: SODIUM CHLORIDE 0.9% 500 ML INFUS.BAG IV ONE ×2 (05:33→07:03)
--- NOTE | 2019-06-26 05:55 | PDOC ---
History of Present Illness - General Chief Complaint: Seizure Stated Complaint: SEIZURES Time Seen by Provider: 06/26/19 05:32 - History of Present Illness Initial Comments: The pt is a 54M w/ a history of seizure d/o, s/p CVA years ago who presents for evaluation s/p seizure x2 at home. Initial partial seizure at 0300 that lasted for approximately 1 minutes with return to baseline. reports subsequent generalized seizure at 0400 that lasted for approximately 2 minutes with subsequent return to baseline prior to arrival in ED. Pt was able to ambulate to ambulance and per EMS was answering questions appropriately. Pt then had witnessed seizure lasting approximately 1 minutes that was generalized tonic-clonic which states looks typical of his seizure activity. Pt currently unable to provide a history (post-ictal) denies recent infectious symptoms including cough, fevers, or recent changes in medications/doses. Pt's last Neurologist visit in 04/2019 at which she states there were no concerns. Neurologist: Dr. Mills Allergies: penicillins PCP: Milton Sawyer 06/26/19 05:56 Past History - Past Medical History Allergies/Adverse Reactions: Allergies Allergy/AdvReac Type Severity Reaction Status Date / Time Penicillins Allergy Verified 06/26/19 05:28 Home Medications: Ambulatory Orders Aspirin [ASA -] 81 mg PO DAILY 01/18/19 Rosuvastatin Calcium [Crestor] 20 mg PO DAILY 01/18/19 Oxcarbazepine [Trileptal -] 900 mg PO BID #180 tablet 01/19/19 Nicotine [Nicotine Patch] 1 each TD DAILY 03/28/19 Lacosamide [Vimpat -] 150 mg PO BID 06/26/19 Phenytoin Na Extended [Dilantin -] 200 mg PO TID 06/26/19 CVA: Yes (08/2015) COPD: No Diabetes: Yes Seizures: Yes - Immunization History Immunization Up to Date: No - Psycho Social/Smoking Cessation Hx Smoking History: Never smoked Have you smoked in the past 12 months: No Number of Cigarettes Smoked Daily: 40 Information on smoking cessation initiated: No 'Breaking Loose' booklet given: 08/09/15 Hx Alcohol Use: No Drug/Substance Use Hx: No Substance Use Type: None Review of Systems - Review of Systems Able to Perform ROS?: No (2/2 medical condition) *Physical Exam - Vital Signs Last Vital Signs Temp Pulse Resp BP Pulse Ox 98.0 F 87 17 161/92 94 L 06/26/19 05:05 06/26/19 05:05 06/26/19 05:05 06/26/19 05:05 06/26/19 05:05 - Physical Exam s/p seizure and return to baseline GENERAL: Awake, alert, and oriented to person/place/time, in no acute distress HEAD: No signs of trauma, normoc ephalic, atraumatic EYES: PERRLA, EOMI, sclera anicteric, conjunctiva clear ENT: Hearing grossly normal, nares patent, oropharynx clear without exudates. Moist mucosa LUNGS: Crackles at left base; good air entry HEART: Regular rate and rhythm, normal S1 and S2, no murmurs appreciated, peripheral pulses normal and equal bilaterally ABDOMEN: Soft, nontender, normoactive bowel sounds. No guarding, no rebound EXTREMITIES: Normal inspection, Normal range of motion, no edema. No clubbing or cyanosis NEUROLOGICAL: Cranial nerves II through XII grossly intact. Normal speech, no focal sensorimotor deficits SKIN: Warm, Dry 06/26/19 07:04 ED Treatment Course - LABORATORY CBC & Chemistry Diagram: 06/26/19 05:40 06/26/19 05:40 - ADDITIONAL ORDERS Additional order review: Laboratory Results 06/26/19 05:43 POC Glucometer 184 06/26/19 05:43 POC Glucometer 184 - Medications Given in the ED: ED Medications Discontinued Medications Generic Name Dose Route Start Last Admin Trade Name Freq PRN Reason Stop Dose Admin Sodium Chloride 1,000 ml 06/26/19 05:33 06/26/19 05:52 Normal Saline - IV 06/26/19 05:34 1,000 ml ONCE ONE Administration Medical Decision Making - Medical Decision Making ED Course Witnessed seizure activity, at 0540 for approximately 1 minute -Pt given Ativan 2mg IV once w/ resolution of seizure activity Pt noted to be hypoxic to 80s s/p seizure, placed on non-rebreather with improvement to 95-97% Labs sent Pt with L crackles, will obtain CXR 06/26/19 05:58 At this time pt is arousable voice, oriented x3, and denies any symptoms LA 9 06/26/19 06:45 Hyponatremia noted, pt receiving NS -Of note, reports that at each admission pt has required Na tablets 2/2 hyponatremia 2/2 Vimpat but their PCP has not wanted to continue them as an outpt in the past -NS ordered 06/26/19 06:55 Pt signed out to day team Pending CXR 06/26/19 07:06 Discharge - Discharge Information Problems reviewed: Yes Clinical Impression/Diagnosis: Seizure, Hyponatremia, Lactic acid acidosis Condition: Guarded - Admission Yes - Follow up/Referral Referrals: Milton Zapien MD [Primary Care Provider] - - Patient Discharge Instructions - Post Discharge Activity
[2019-06-26 06:31] LABS: HEMATOCRIT 42.5 % (35.4-49); HEMOGLOBIN 14.7 GM/dL (11.7-16.9); MCH 30.5 pg (25.7-33.7); MCHC 34.6 g/dl (32.0-35.9); MEAN CELL VOLUME 88.2 fl (80-96); MEAN PLT VOLUME 6.8 fl (7.5-11.1); MONO % 4.1 % (3.8-10.2); NEUT % 68.9 % (42.8-82.8); PLATELET COUNT 424 K/MM3 (134-434); RBC 4.82 M/mm3 (4.00-5.60); RDW 14.9 % (11.9-15.9); WHITE BLOOD COUNT 9.8 K/mm3 (4.0-10.0)
[2019-06-26 06:47] LABS: ALBUMIN 4.2 g/dl (3.4-5.0); BILIRUBIN,TOTAL 0.2 mg/dL (0.2-1); BLOOD UREA NITROGEN 11.2 mg/dL (7-18); CALCIUM 9.3 mg/dL (8.5-10.1); CREATININE 0.8 mg/dL (0.55-1.3); POTASSIUM 4.1 mmol/L (3.5-5.1); TOT PROT 7.4 g/dl (6.4-8.2)
--- NOTE | 2019-06-26 07:11 | PDOC ---
*Physical Exam - Vital Signs Last Vital Signs Temp Pulse Resp BP Pulse Ox 98.0 F 87 17 161/92 96 06/26/19 05:05 06/26/19 05:05 06/26/19 05:05 06/26/19 05:05 06/26/19 05:30 - Physical Exam 06/26/19 07:11 54M w/ a history of seizure d/o, s/p CVA years ago who presents for evaluation s /p seizure x2 at home Received sign out from Dr. Cohen. Awaiting to endorse patient to hospitalist. ED Treatment Course - LABORATORY CBC & Chemistry Diagram: 06/26/19 05:40 06/26/19 05:40 - ADDITIONAL ORDERS Additional order review: Laboratory Results 06/26/19 06/26/19 06/26/19 05:43 05:40 05:40 Sodium Potassium Chloride Carbon Dioxide Anion Gap BUN Creatinine Est GFR (CKD-EPI)AfAm Est GFR (CKD-EPI)NonAf POC Glucometer 184 Random Glucose Lactic Acid 9.0 H* Calcium Total Bilirubin AST ALT Alkaline Phosphatase Creatine Kinase Troponin I Total Protein Albumin Phenytoin 10.1 06/26/19 06/26/19 05:40 05:40 Sodium 129 L Potassium 4.1 Chloride 92 L Carbon Dioxide 21 Anion Gap 17 H BUN 11.2 Creatinine 0.8 Est GFR (CKD-EPI)AfAm 115.74 Est GFR (CKD-EPI)NonAf 99.86 POC Glucometer Random Glucose 185 H Lactic Acid Calcium 9.3 Total Bilirubin 0.2 AST 22 ALT 20 Alkaline Phosphatase 91 Creatine Kinase 165 Troponin I < 0.02 Total Protein 7.4 Albumin 4.2 Phenytoin 06/26/19 06/26/19 05:43 05:40 RBC 4.82 MCV 88.2 MCHC 34.6 RDW 14.9 MPV 6.8 L Neutrophils % 68.9 Lymphocytes % 24.0 Monocytes % 4.1 Eosinophils % 2.0 D Basophils % 1.0 POC Glucometer 184 - Medications Given in the ED: ED Medications Discontinued Medications Generic Name Dose Route Start Last Admin Trade Name Freq PRN Reason Stop Dose Admin Lorazepam 2 mg 06/26/19 05:55 06/26/19 05:32 Ativan Injection - IVPUSH 06/26/19 05:56 2 mg ONCE ONE Administration Sodium Chloride 1,000 ml 06/26/19 05:33 06/26/19 05:52 Normal Saline - IV 06/26/19 05:34 1,000 ml ONCE ONE Administration Medical Decision Making - Medical Decision Making 06/26/19 10:33 patient had a seizure that terminated with 2 mg of ativan IV. Patient continues to be post-ictal; decision made by hospitalist service to transfer patient ED to ED for further care and consultation. 06/26/19 12:38 Dr Mills wishes for an ED to ED transfer to Dr. Hamilton at [facility]. Dr. Kern was the neuro workday consultant. 06/27/19 06:32 Discharge - Discharge Information Problems reviewed: Yes Clinical Impression/Diagnosis: Seizure, Hyponatremia, Lactic acid acidosis Condition: Guarded Disposition: TRANSFER ACUTE CARE/OTHER HOSP - Follow up/Referral Referrals: Milton Zapien MD [Primary Care Provider] - - Patient Discharge Instructions - Post Discharge Activity
[2019-06-26 09:04] LABS: COCAINE, UR NEGATIVE ng/ml (CUTOFF=300); METHADONE, UR NEGATIVE ng/ml (CUTOFF=300); OPIATES, URI NEGATIVE ng/ml (CUTOFF=300); PHENCYCLIDINE,URINE NEGATIVE ng/ml (CUTOFF=25); URINE AMPHETAMINES NEGATIVE ng/ml (CUTOFF=500); URINE BARBITURATES NEGATIVE ng/ml (CUTOFF=200); URINE BENZODIAZEPINES NEGATIVE ng/ml (CUTOFF=200)
[2019-06-26] MEDS ORDERED: SODIUM CHLORIDE IVPB ONE (11:45)
[2019-06-26] MEDS ORDERED: FOSPHENYTOIN SODIUM IVPB ONE (11:45)
[2019-06-26 11:50] LABS: EPI CELLS 1.8 /HPF (0-5/HPF); HYALINE CASTS 16 /lpf (0-8); PH,URINE 6.5 (5.0-8.0); URINE APPEARANCE CLEAR; URINE BACTERIA 104.1 /hpf (NEGATIVE); URINE BILIRUBIN NEGATIVE (NEGATIVE); URINE COLOR YELLOW; URINE GLUCOSE (UA) TRACE (NEGATIVE); URINE KETONE NEGATIVE (NEGATIVE); URINE LEUK ESTERASE NEGATIVE (NEGATIVE); URINE NITRITE NEGATIVE (NEGATIVE); URINE PROTEIN 1+ (NEGATIVE); URINE RBC 6 /hpf (0-4); URINE UROBILINOGEN 0.2 mg/dL (0.2-1.0); URINE WBC 74 /hpf (0-5)
[2019-06-26] MEDS ORDERED: VALPROATE SODIUM 500 MG/5 ML VIAL IVPB ONE (12:00)
[2019-06-26] MEDS ORDERED: ONDANSETRON 4 MG/2 ML VIAL IVPB ONE (12:15)
[2019-06-26] MEDS ORDERED: ONDANSETRON 4 MG/2 ML VIAL ONE (12:20)
[2019-06-26 13:01] VITALS: BP 147/85; PULSE 90
[2019-06-26] MEDS ORDERED: Lacosamide 200 MG/20 ML VIAL IVPB ONE (13:30)
[2019-06-26] MEDS ORDERED: PHENYTOIN NA EXTENDED 100 MG CAPSULE (FP) PO SCH (14:00)
[2019-06-26] MEDS ORDERED: HEPARIN NA (PORCINE) 5,000 UNITS/ML 1ML VIAL SQ SCH (18:00)
[2019-06-26] MEDS ORDERED: OXcarbazepine 300 MG TABLET (UD) PO SCH (22:00)
[2019-06-26] MEDS ORDERED: ROSUVASTATIN CA 20 MG TABLET (FP) PO SCH (22:00)
[2019-06-26] MEDS ORDERED: LACOSAMIDE 50 MG TABLET PO SCH (22:00)
[2019-06-27] MEDS ORDERED: ASPIRIN 81 MG CHEWABLE TABLETS PO SCH (10:00)
--- NOTE | 2019-06-27 10:05 | EKG ---
Test Reason : Blood Pressure : / mmHG Vent. Rate : 092 BPM Atrial Rate : 092 BPM P-R Int : 174 ms QRS Dur : 130 ms QT Int : 368 ms P-R-T Axes : 071 042 070 degrees QTc Int : 455 ms NORMAL SINUS RHYTHM RIGHT BUNDLE BRANCH BLOCK ABNORMAL ECG WHEN COMPARED WITH ECG OF 28-MAR-2019 16:13, NO SIGNIFICANT CHANGE WAS FOUND Confirmed by MARCO ANTONIO DEWITT MD ([id number]) on 06/27/2019 10:05:08 AM Referred By: Confirmed By:MARCO ANTONIO DEWITT MD
== END 2019-06-26 14:16 | disposition short-term general hospital (02) ==
LOC: JER 04:54 → JERBED 07:08 → UNDOADMIN 07:08 → JER 14:16
PROC: 3E023GC Introduction of Other Therapeutic Substance into Muscle, Percutaneous Approach (ICD-10-PCS; principal; 2019-06-26)
PROC: 3E033GC Introduction of Other Therapeutic Substance into Peripheral Vein, Percutaneous Approach (ICD-10-PCS; 2019-06-26)
PROC: 3E033NZ Introduction of Analgesics, Hypnotics, Sedatives into Peripheral Vein, Percutaneous Approach (ICD-10-PCS; 2019-06-26)
PROC: 3E033NZ Introduction of Analgesics, Hypnotics, Sedatives into Peripheral Vein, Percutaneous Approach (ICD-10-PCS; 2019-06-26)
PROC: 3E033GC Introduction of Other Therapeutic Substance into Peripheral Vein, Percutaneous Approach (ICD-10-PCS; 2019-06-26)
DX: G40.909 Epilepsy, unspecified, not intractable, without status epilepticus (principal); E87.1 Hypo-osmolality and hyponatremia; E87.2 Acidosis; Z88.0 Allergy status to penicillin
CPT/HCPCS: 36415; 71045-TC-FY; 80053; 80185; 80307; 81003; 82550; 82553; 82962; 83036; 83605; 84439; 84443; 84481; 84484; 85025; 93005; 93010; 99285-25

== ENCOUNTER 2022-08-03 17:14 | Emergency (ER) | payer OTHER, BC ==
[2022-08-03 17:33] VITALS: BMI 18.7
[2022-08-03 19:52] VITALS: BP 122/93; PULSE 94; RESP 18; TEMP 98.3
[2022-08-03 19:59] LABS: INR 1.03 (0.83-1.09); PROTHROMBIN TIME (PATIENT) 11.8 SEC (9.7-13.0)
[2022-08-03 20:10] LABS: HEMOGLOBIN 14.3 G/dL (11.7-16.9); MCH 31.1 pg (25.7-33.7); MCHC 36.3 g/dl (32.0-35.9); MEAN CELL VOLUME 85.9 fl (80-96); MEAN PLT VOLUME 7.5 fl (7.5-11.1); WHITE BLOOD COUNT 6.7 10^3/uL (4.0-10.8)
[2022-08-03 20:14] LABS: ALBUMIN 4.3 g/dl (3.4-5.0); BILIRUBIN,TOTAL 0.4 mg/dl (0.2-1); CALCIUM 9.4 mg/dl (8.5-10); CREATININE 0.8 mg/dl (0.55-1.3); TOT PROT 6.8 g/dl (6.4-8.2)
[2022-08-03 20:17] LABS: HEMATOCRIT 39.5 % (35.4-49)
== END 2022-08-03 22:05 | disposition short-term general hospital (02) ==
LOC: FER 17:14
DX: I82.412 Acute embolism and thrombosis of left femoral vein (principal); L03.116 Cellulitis of left lower limb
CPT/HCPCS: 36415; 80053; 85027; 85610; 93005; 93971-TC; 99285-25; C9803-CS; U0003; U0005

== ENCOUNTER 2024-07-23 21:48 | Emergency (ER) | payer BC ==
[2024-07-23 21:59] VITALS: BP 163/89; PULSE 104; RESP 18; TEMP 98; BMI 18.7
== END 2024-07-23 22:49 | disposition home or self-care (01) ==
LOC: FER 21:48
DX: S42.212A Unspecified displaced fracture of surgical neck of left humerus, initial encounter for closed fracture (principal); W01.198A Fall on same level from slipping, tripping and stumbling with subsequent striking against other object, initial encounter; Y93.01 Activity, walking, marching and hiking
CPT/HCPCS: 73030-TC-LT-FY; 99283-25

== ENCOUNTER 2025-01-18 21:54 | Observation (INO) | payer BC, OTHER ==
[2025-01-18 22:38] LABS: ABSOLUTE IMMATURE GRANULOCYTES 0.02 x10^3/uL (0.0-0.031); BASOPHILS # 0.03 x10^3/uL (0.01-0.08); EOSINOPHIL % 1.7 % (0.8-7.0); EOSINOPHILS # 0.10 x10^3/uL (0.04-0.54); MCHC 32.4 g/dl (32.3-36.5); MEAN CELL VOLUME 92.4 fl (79.0-92.2); MEAN PLT VOLUME 9.9 fl (9.4-12.4); MONOCYTE # 0.58 x10^3/uL (0.30-0.82); MONOCYTE % 9.7 % (5.3-12.2); RDW 13.8 % (12.2-16.4)
[2025-01-18 22:48] LABS: INR 1.14 (0.83-1.09); PROTHROMBIN TIME (PATIENT) 12.4 SEC (9.7-13.0)
[2025-01-18 22:50] LABS: ACTIVATED PTT 32.8 SECONDS (25.2-36.5)
[2025-01-18 22:53] LABS: GLUCOSE,RANDOM 134.0 mg/dL (74-106)
[2025-01-18 22:54] LABS: TOT PROT 6.1 g/dl (6.4-8.2)
[2025-01-18 22:55] LABS: CO2 32.0 mmol/L (21-32)
[2025-01-18 22:56] LABS: ALK PHOS 50.0 U/L (40-150)
[2025-01-18] MEDS: SODIUM CHLORIDE 0.9% 500 ML INFUS.BAG IV ONE (22:56)
[2025-01-18 22:59] LABS: CREATININE 0.97 mg/dL (0.55-1.3); SGOT/AST 15.0 U/L (5-34); SGPT/ALT 20.0 U/L (0-55)
[2025-01-18 23:06] LABS: N-TERMINAL BNP 146.1 pg/mL (0-299.9)
[2025-01-18 23:20] LABS: HIV INTERPRETATION NEGATIVE (NEGATIVE)
[2025-01-18 23:41] LABS: HCV DIAGNOSTIC IN-HOUSE W/RFLX NON-REACTIVE (NONREACTIVE)
[2025-01-19] MEDS: SODIUM CHLORIDE 0.9% 500 ML INFUS.BAG IV ONE (01:10)
[2025-01-19 02:06] LABS: EPI CELLS 4 /uL (0-25.1); HYALINE CASTS 0 /uL (0-3.1); URINE APPEARANCE CLEAR; URINE BACTERIA 11 /uL (0-1359); URINE BILIRUBIN NEGATIVE (NEGATIVE); URINE COLOR YELLOW; URINE GLUCOSE (UA) NEGATIVE (NEGATIVE); URINE KETONE NEGATIVE (NEGATIVE); URINE LEUK ESTERASE TRACE (NEGATIVE); URINE NITRITE NEGATIVE (NEGATIVE); URINE PROTEIN TRACE (NEGATIVE); URINE RBC 9 /uL (0-23.9); URINE UROBILINOGEN 1.0 mg/dL (0.2-1.0); URINE WBC 26 /uL (0-25.8)
[2025-01-19 03:49] VITALS: BMI 24.2
[2025-01-19] MEDS: MAGNESIUM SULF 50% (8.12 MEQ/2 ML-1 GM VIAL) IVPB ONE (06:01)
[2025-01-19 07:09] VITALS: TEMP 97.5
[2025-01-19 07:32] LABS: ABSOLUTE IMMATURE GRANULOCYTES 0.01 x10^3/uL (0.0-0.031); BASOPHILS # 0.02 x10^3/uL (0.01-0.08); EOSINOPHIL % 3.4 % (0.8-7.0); EOSINOPHILS # 0.13 x10^3/uL (0.04-0.54); MCHC 32.1 g/dl (32.3-36.5); MEAN CELL VOLUME 92.3 fl (79.0-92.2); MEAN PLT VOLUME 10.0 fl (9.4-12.4); MONOCYTE # 0.46 x10^3/uL (0.30-0.82); MONOCYTE % 11.9 % (5.3-12.2); RDW 13.7 % (12.2-16.4)
[2025-01-19 07:54] LABS: GLUCOSE,RANDOM 120.0 mg/dL (74-106); TOT PROT 5.7 g/dl (6.4-8.2)
[2025-01-19 07:55] LABS: CO2 28.0 mmol/L (21-32)
[2025-01-19 07:57] LABS: ALK PHOS 51.0 U/L (40-150)
[2025-01-19 08:00] LABS: CREATININE 0.69 mg/dL (0.55-1.3); SGOT/AST 22.0 U/L (5-34); SGPT/ALT 25.0 U/L (0-55)
[2025-01-19] MEDS: ASPIRIN 81 MG CHEWABLE TABLETS PO SCH (09:27)
[2025-01-19] MEDS: ASCORBIC ACID 500 MG TABLET (FP) PO SCH (09:27)
[2025-01-19] MEDS: APIXABAN 5 MG TABLET PO SCH (09:27)
[2025-01-19] MEDS: levETIRAcetam 500 MG TABLET (FP) PO SCH (09:48)
[2025-01-19] MEDS: THIAMINE HCL 200 MG/2 ML VIAL IVPB SCH (10:10)
[2025-01-19 13:21] VITALS: RESP 16
[2025-01-19] MEDS: ASCORBIC ACID IVPB SCH (15:15)
[2025-01-19] MEDS: SODIUM CHLORIDE IVPB SCH (15:15)
[2025-01-19 15:41] VITALS: BP 140/76; PULSE 66
== END 2025-01-19 19:03 | disposition home or self-care (01) ==
LOC: JER 21:54 → JERBED 01-19 03:01 → INTOOBSV 01-19 03:24 → OBSVTOIN 01-19 03:24 → J4S 01-19 03:40
PROVIDERS: ADMIT Hospitalist; ATTEND Internal Medicine
PROC: 3E033GC Introduction of Other Therapeutic Substance into Peripheral Vein, Percutaneous Approach (ICD-10-PCS; principal; 2025-01-19)
PROC: 3E0337Z Introduction of Electrolytic and Water Balance Substance into Peripheral Vein, Percutaneous Approach (ICD-10-PCS; 2025-01-19)
DX: R47.89 Other speech disturbances (principal); R53.1 Weakness; E54 Ascorbic acid deficiency; I69.354 Hemiplegia and hemiparesis following cerebral infarction affecting left non-dominant side; G40.909 Epilepsy, unspecified, not intractable, without status epilepticus; I67.1 Cerebral aneurysm, nonruptured; Z86.718 Personal history of other venous thrombosis and embolism; Z87.891 Personal history of nicotine dependence; Z88.0 Allergy status to penicillin
CPT/HCPCS: 36415; 70450-TC; 71046-TC-FY; 80053; 80185; 81003; 82180; 82607; 82746; 83735; 83880; 84100; 84425; 84484; 85025; 85610; 85730; 86803; 86850; 86900; 86901; 87086; 87389; 93005; 93010; 93971-TC-RT; 97116-GP; 97161-GP; 99285-25; G0378

== ENCOUNTER 2025-01-25 09:27 | Emergency (ER) | payer BC, OTHER ==
[2025-01-25] MEDS ORDERED: levETIRAcetam 500 MG/5 ML INJECTION VIAL IVPB ONE ×2 (09:36→09:37)
[2025-01-25] MEDS: levETIRAcetam 500 MG/5 ML INJECTION VIAL IVPB ONE (09:47)
[2025-01-25 09:49] VITALS: BMI 19.3
[2025-01-25 10:25] LABS: BG HCT 47.0 % (35.4-49); MCHC 31.4 g/dl (32.3-36.5); MEAN CELL VOLUME 94.1 fl (79.0-92.2); MEAN PLT VOLUME 10.0 fl (9.4-12.4); RDW 13.4 % (12.2-16.4); VENOUS BASE EXCESS -18.7 mmol/L (-2-2); VENOUS O2 SATURATION 92.7 % (70-80)
[2025-01-25 10:30] LABS: VENOUS PCO2 82.1 mmHg (38-52); VENOUS PH 6.904 (7.310-7.410)
[2025-01-25 10:37] LABS: INR 1.08 (0.83-1.09); PROTHROMBIN TIME (PATIENT) 11.9 SEC (9.7-13.0)
[2025-01-25] MEDS ORDERED: CEFTRIAXONE 1 GM/50 ML BAG ONE (10:47)
[2025-01-25 10:48] LABS: GLUCOSE,RANDOM 213.0 mg/dL (74-106)
[2025-01-25 10:49] LABS: TOT PROT 7.4 g/dl (6.4-8.2)
[2025-01-25 10:50] LABS: CO2 17.0 mmol/L (21-32)
[2025-01-25 10:51] LABS: ALK PHOS 60.0 U/L (40-150)
[2025-01-25] MEDS: CEFTRIAXONE 1,000 MG in DEXTROSE 5%-WATER - 50 ML IVPB ONE (10:52)
[2025-01-25] MEDS ORDERED: AZITHROMYCIN IVPB 500 MG/250 ML BAG IVPB ONE (11:21)
[2025-01-25] MEDS: AZITHROMYCIN IVPB 500 MG in DEXTROSE 5%-WATER - 250 ML IVPB ONE (11:23)
[2025-01-25] MEDS: SODIUM CHLORIDE 1,000 ML IV STA (11:44)
[2025-01-25 12:06] LABS: CREATININE 0.93 mg/dL (0.55-1.3); LACTIC ACID 12.8 mmol/L (0.4-2.0); SGOT/AST 31.0 U/L (5-34); SGPT/ALT 36.0 U/L (0-55)
[2025-01-25] MEDS ORDERED: ACETAMINOPHEN INJECTION 100 ML ONE (12:45)
[2025-01-25 12:46] VITALS: PULSE 94; TEMP 100.5
[2025-01-25] MEDS: ACETAMINOPHEN 1000 MG/100 ML BAG IVPB ONE (12:53)
[2025-01-25 12:59] LABS: BG HCT 42.0 % (35.4-49); VENOUS BASE EXCESS -1.5 mmol/L (-2-2); VENOUS O2 SATURATION 38.9 % (70-80); VENOUS PCO2 47.5 mmHg (38-52); VENOUS PH 7.335 (7.310-7.410)
[2025-01-25 13:09] VITALS: BP 124/71
[2025-01-25 13:13] VITALS: RESP 20
== END 2025-01-25 13:13 | disposition short-term general hospital (02) ==
LOC: JER 09:27
PROC: 3E03329 Introduction of Other Anti-infective into Peripheral Vein, Percutaneous Approach (ICD-10-PCS; principal; 2025-01-25)
PROC: 3E03329 Introduction of Other Anti-infective into Peripheral Vein, Percutaneous Approach (ICD-10-PCS; 2025-01-25)
PROC: 3E033NZ Introduction of Analgesics, Hypnotics, Sedatives into Peripheral Vein, Percutaneous Approach (ICD-10-PCS; 2025-01-25)
PROC: 3E033GC Introduction of Other Therapeutic Substance into Peripheral Vein, Percutaneous Approach (ICD-10-PCS; 2025-01-25)
PROC: 3E033GC Introduction of Other Therapeutic Substance into Peripheral Vein, Percutaneous Approach (ICD-10-PCS; 2025-01-25)
PROC: 3E033GC Introduction of Other Therapeutic Substance into Peripheral Vein, Percutaneous Approach (ICD-10-PCS; 2025-01-25)
PROC: 3E0337Z Introduction of Electrolytic and Water Balance Substance into Peripheral Vein, Percutaneous Approach (ICD-10-PCS; 2025-01-25)
DX: G40.901 Epilepsy, unspecified, not intractable, with status epilepticus (principal); J69.0 Pneumonitis due to inhalation of food and vomit; R00.0 Tachycardia, unspecified
CPT/HCPCS: 36415; 70450-TC; 71045-TC-FY; 80053; 80177; 82803; 82962; 83605; 83735; 84100; 85025; 85610; 86850; 86900; 86901; 87040; 87637-QW; 93005; 93010; 99291